=== PATIENT | female | born 1980 | race Caucasian/White ===

== ENCOUNTER 2017-12-31 12:54 | Outpatient (CLI) | payer MEDICAID, SELFPAY ==
[2018-01-01 11:41] LABS: Lyme Ab w Rflx to Lyme Confirm Negative; Rheumatoid Factor <8 IU/mL (<12.5)
[2018-01-01 13:28] LABS: ANA Interpretation Negative (NEGAT)
== END 2017-12-31 13:14 ==
PROVIDERS: Visit Provider Obstetrics & Gynecology Gynecology
DX: R68.89 Other general symptoms and signs (principal)
CPT/HCPCS: 36415; 86038; 86431; 86618

== ENCOUNTER 2018-04-11 14:07 | Emergency (ER) | payer MEDICAID, SELFPAY ==
[2018-04-11 14:20] VITALS: BP 118/89; PULSE 108; RESP 20; TEMP 37.6; O2SAT 97
--- NOTE | 2018-04-11 15:14 | W.ED.GENAD ---
Discharge Plan Disposition Patient Disposition: HOME Condition: Fair Discharge Details Chief Complaint: RespSymp Clinical Impression: Bronchitis Reason For Visit: cough / body aches Primary Care Provider: None,None ED Provider: Kayleigh Bejarano Home Meds and New Rx's Prescriptions: New benzonatate [Tessalon Perles] 100 mg capsule 100 mg PO QID PRN (Reason: cough) Qty: 14 RF: 0 azithromycin 500 mg tablet See Rx Instructions .ROUTE .COMPLEX Qty: 3 RF: 0 Continued Estephania-[place] Original 325-1,916-1,000 mg Tablet, Effervescent RF: 0 Discharge Instructions Instructions: Albuterol (By breathing), Acute Bronchitis (ED) Additional Instructions: Encourage hydration. Tylenol and/or ibuprofen as needed for discomfort or fevers. May continue with Estephania-[place] to help with symptomatic management. Inhaler may be used 2 puffs every 4 hours as needed. Please always use with spacer. Tessalon perles as prescribed for cough. If symptoms persist over the next 48 hours or worsen please begin antibiotics as prescribed. If you begin the antibiotics please take the entire course. shipping and receiving coordinator will contact you to schedule follow up with primary care. If you develop difficulty breathing, shortness of breath, inability to stay hydrated or other new/worsening symptoms please seek care urgently once again. Discharge Data Discharge Date/Time-TO BE ENTERED AT DEPARTURE: 04/11/18 16:04 Medical Decision Making Patient 37-year-old female presents today with chief complaint of URI. She reports that symptoms began 5 days ago. Is endorsing rhinorrhea, congestion, sore throat, cough. She denies any GI upset. States she feels short of breath when she has coughing fits but otherwise is not having any shortness of breath, no shortness of breath with exertion. Denies any fevers at home but was noted to have a low-grade fever here. On exam, patient appears nontoxic. She does have expiratory wheezes noted in all [place]. Lungs are otherwise clear. O2 97% on RA. She has no history of asthma or respiratory illness. Cough is nonproductive. Patient diagnosed with bronchitis. Encouraged hydration. Advised Tylenol and ibuprofen as needed for discomfort. Patient will be given a an albuterol inhaler with spacer. Will also prescribed Tessalon Perles. Advised watch and wait approach in regard to antibiotics, discussed that the bronchitis is likely viral. I will prescribe her azithromycin to begin if symptoms persist. Usage instruction was given to the patient. We discussed new/worsening symptoms when she should seek care urgently once again. She does not have a primary care, I have asked her field care advocate to help arrange follow-up in the next 1-2 weeks for reevaluation. All of her questions and concerns were addressed, she is in agreement wiht this plan. HPI General Mode of arrival: ambulatory. Date/Time Provider Initiated Documentation: 04/11/18 15:13. Limitations to Documentation: no limitations. Information obtained by: patient. History of Present Illness 37 year old F presents to the emergency department with the chief complaint of URI, described as moderate, Quality is described as aching (endorses body aches), Patient started experiencing this day(s) and it has been constant. Medication improves symptom(s), No exacerbating factors reported . Patient notes chest pain (endorses discomfort with cough), cough and shortness of breath (with cough); denies fever/chills, headaches, loss of appetite, nausea/vomiting, rash and weakness. Patient did receive the following treatments prior to arrival, other (Estephania-lurdes) Related Data Home Medications Medication Instructions Recorded Confirmed Estephania-Lurdes Original 04/11/18 azithromycin See Rx Instructions .ROUTE 04/11/18 .COMPLEX #3 tab benzonatate [Tessalon Perles] 100 mg PO QID PRN #14 cap 04/11/18 Previous Rx's Medication Instructions Recorded azithromycin See Rx Instructions .ROUTE 04/11/18 .COMPLEX #3 tab benzonatate [Tessalon Perles] 100 mg PO QID PRN #14 cap 04/11/18 Allergies Allergy/AdvReac Type Severity Reaction Status Date / Time No Known Drug Allergies Allergy Unverified 04/11/18 14:27 General Stated Complaint: RespSymp ERNST: 4 Review of Systems Constitutional Reports as per HPI, Denies chills, Denies fever(s), Denies headache(s) and Denies poor appetite Eyes Reports as per HPI, Denies eye discharge and Denies irritation ENT Denies change in voice, Denies ear discharge, Reports otalgia, Denies headache(s), Denies hoarseness, Reports nasal congestion, Reports nasal discharge, Reports sinus pain, Reports sinus pressure, Reports sore throat, Denies throat swelling and Denies tongue swelling Cardiovascular Reports as per HPI, Denies chest pain and Denies dyspnea Respiratory Denies system reviewed and no additional complaints, except as docu, Reports cough, Denies hemoptysis, Denies dyspnea, Denies stridor and Denies wheezing Gastrointestinal Reports as per HPI, Denies abdominal pain, Denies change in bowel habits, Denies nausea and Denies vomiting Integumentary/Breasts Reports as per HPI and Denies rash Neurologic Denies headache(s) Allergic/Immunologic Denies throat swelling, Denies tongue swelling and Denies wheezing [facility] Medical History History of spontaneous (Acute) Chlamydia trachomatis infection condyloma vulva Family History Other Diabetes Hyperlipidemia Social History household members: significant other and children number of children: 2 current occupational status: employed current occupation: [employer] Smoking/Tobacco Use Status: Current-Occasional Female Reproductive History Menstrual control method: none History History 6 Para 2 Hx # Term Pregnancies 2 Multiple births Hx # Pregnancies Ectopic pregnancies AB induced Hx Number of Living Children AB spontaneous Exam Const General: cooperative, healthy appearing, comfortable, no acute distress, well developed and well groomed Nutritional Appearance: average body habitus and well nourished Orientation: alert and awake [facility] Head: normal to inspection, normocephalic and atraumatic Ears: hearing grossly normal bilaterally, external ears normal and TM's normal bilaterally General nose exam: external nose normal and nares normal Face and sinus: normal facial exam, sinuses nontender and face symmetric Mouth: oral mucosae normal, lip normal, tongue normal, oropharynx normal and moist mucous membranes Teeth and gingiva: dentition normal Throat: posterior oropharynx normal, tonsils normal and uvula midline Eyes General: appearance normal, both eyes and all related structures Neck Neck: normal visual inspection, full ROM, no lymphadenopathy and no meningeal signs Resp Effort & Inspection: normal respiratory effort, able to speak in complete sentences, cough Quality of cough: dry and no respiratory distress Auscultation: no rales, no rhonchi and wheezes (faint expiratory wheeze in all [place]) Cardio Rate: regular rate Rhythm: regular rhythm Heart Sounds: S1 normal and S2 normal Skin General skin exam: no rashes or lesions noted Neuro General: alert and awake Cognition: normal cognition Speech: speech normal Gait: normal gait Psych Appearance: grossly normal and well kempt Mental Status: mental status grossly normal Speech and Movement: speech and movement normal Course Vital Signs Temperature 37.6 C H 04/11/18 14:20 Pulse 108 H 04/11/18 14:20 Respiratory Rate 20 04/11/18 14:20 Blood Pressure 118/89 04/11/18 14:20 Pulse Oximetry 97 04/11/18 14:20 Temperature 37.6 C H 04/11/18 14:20 Temperature Source Tympanic 04/11/18 14:20 Pulse 108 H 04/11/18 14:20 Respiratory Rate 20 04/11/18 14:20 Respiratory Effort 04/11/18 14:28 Respiratory Depth Normal 04/11/18 14:28 Blood Pressure 118/89 04/11/18 14:20 Blood Pressure Position Sitting 04/11/18 14:20 Pulse Oximetry 97 04/11/18 14:20 Oxygen Delivery Method Room Air 04/11/18 14:20 Oxygen Flow Rate 0 04/11/18 14:20
--- NOTE | 2018-04-11 15:23 | ED.GENADUL_ITS ---
Discharge Plan Disposition Patient Disposition: HOME Condition: Fair Discharge Details Chief Complaint: RespSymp Clinical Impression: Bronchitis Reason For Visit: cough / body aches Primary Care Provider: None,None ED Provider: Kayleigh Bejarano Home Meds and New Rx's Prescriptions: New benzonatate [Tessalon Perles] 100 mg capsule 100 mg PO QID PRN (Reason: cough) Qty: 14 RF: 0 azithromycin 500 mg tablet See Rx Instructions .ROUTE .COMPLEX Qty: 3 RF: 0 Continued Estephania-[place] Original 325-1,916-1,000 mg Tablet, Effervescent RF: 0 Discharge Instructions Instructions: Albuterol (By breathing), Acute Bronchitis (ED) Additional Instructions: Encourage hydration. Tylenol and/or ibuprofen as needed for discomfort or fevers. May continue with Estephania-[place] to help with symptomatic management. Inhaler may be used 2 puffs every 4 hours as needed. Please always use with s pacer. Tessalon perles as prescribed for cough. If symptoms persist over the next 48 hours or worsen please begin antibiotics as prescribed. If you begin the antibiotics please take the entire course. major donor coordinator will contact you to schedule follow up with primary care. If you develop difficulty breathing, shortness of breath, inability to stay hydrated or other new/worsening symptoms please seek care urgently once again. Discharge Data Discharge Date/Time-TO BE ENTERED AT DEPARTURE: 04/11/18 16:04 Medical Decision Making Patient 37-year-old female presents today with chief complaint of URI. She reports that symptoms began 5 days ago. Is endorsing rhinorrhea, congestion, sore throat, cough. She denies any GI upset. States she feels short of breath when she has coughing fits but otherwise is not having any shortness of breath, no shortness of breath with exertion. Denies any fevers at home but was noted to have a low-grade fever here. On exam, patient appears nontoxic. She does have expiratory wheezes noted in all [place]. Lungs are otherwise clear. O2 97% on RA. She has no history of asthma or respiratory illness. Cough is nonproductive. Patient diagnosed with bronchitis. Encouraged hydration. Advised Tylenol and ibuprofen as needed for discomfort. Patient will be given a an albuterol inhaler with spacer. Will also prescribed Tessalon Perles. Advised watch and wait approach in regard to antibiotics, discussed that the bronchitis is likely viral. I will prescribe her azithromycin to begin if symptoms persist. Usage instruction was given to the patient. We discussed new/worsening symptoms when she should seek care urgently once again. She does not have a primary care, I have asked her ambulatory care nurse to help arrange follow-up in the next 1-2 weeks for reevaluation. All of her questions and concerns were addressed, she is in agreement wiht this plan. HPI General Mode of arrival: ambulatory . Date/Time Provider Initiated Documentation: 04/11/18 15:13 . Limitations to Documentation: no limitations . Information obtained by: patient . History of Present Illness 37 year old F presents to the emergency department with the chief complaint of URI, described as moderate, Quality is described as aching (endorses body aches), Patient started experiencing this day(s) and it has been constant. Medication improves symptom(s), No exacerbating factors reported . Patient notes chest pain (endorses discomfort with cough), cough and shortness of breath (with cough); denies fever/chills, headaches, loss of appetite, nausea/vomiting, rash and weakness. Patient did receive the following treatments prior to arrival, other (Estephania-lurdes) Related Data Home Medications Medication Instructions Recorded Confirmed Estephania-Lurdes Original 04/11/18 azithromycin See Rx Instructions .ROUTE 04/11/18 .COMPLEX #3 tab benzonatate [Tessalon Perles] 100 mg PO QID PRN #14 cap 04/11/18 Previous Rx's Medication Instructions Recorded azithromycin See Rx Instructions .ROUTE 04/11/18 .COMPLEX #3 tab benzonatate [Tessalon Perles] 100 mg PO QID PRN #14 cap 04/11/18 Allergies Allergy/AdvReac Type Severity Reaction Status Date / Time No Known Drug Allergies Allergy Unverified 04/11/18 14:27 General Stated Complaint: RespSymp ERNST: 4 Review of Systems Constitutional Reports as per HPI, Denies chills, Denies fever(s), Denies headache(s) and Denies poor appetite Eyes Reports as per HPI, Denies eye discharge and Denies irritation ENT Denies change in voice, Denies ear discharge, Reports otalgia, Denies headache(s), Denies hoarseness, Reports nasal congestion, Reports nasal discharge, Reports sinus pain, Reports sinus pressure, Reports sore throat, Denies throat swelling and Denies tongue swelling Cardiovascular Reports as per HPI, Denies chest pain and Denies dyspnea Respiratory Denies system reviewed and no additional complaints, except as docu, Reports cough, Denies hemoptysis, Denies dyspnea, Denies stridor and Denies wheezing Gastrointestinal Reports as per HPI, Denies abdominal pain, Denies change in bowel habits, Denies nausea and Denies vomiting Integumentary/Breasts Reports as per HPI and Denies rash Neurologic Denies headache(s) Allergic/Immunologic Denies throat swelling, Denies tongue swelling and Denies wheezing [facility] Medical History History of spontaneous (Acute) Chlamydia trachomatis infection condyloma vulva Family History Other Diabetes Hyperlipidemia Social History household members: significant other and children number of children: 2 current occupational status: employed current occupation: [employer] Smoking/Tobacco Use Status: Current-Occasional Female Reproductive History Menstrual control method: none History History 6 Para 2 Hx # Term Pregnancies 2 Multiple births Hx # Pregnancies Ectopic pregnancies AB induced Hx Number of Living Children AB spontaneous Exam Const General: cooperative, healthy appearing, comfortable, no acute distress, well developed and well groomed Nutritional Appearance: average body habitus and well nourished Orientation: alert and awake [facility] Head: normal to inspection, normocephalic and atraumatic Ears: hearing grossly normal bilaterally, external ears normal and TM's normal bilaterally General nose exam: external nose normal and nares normal Face and sinus: normal facial exam, sinuses nontender and face symmetric Mouth: oral mucosae normal, lip normal, tongue normal, oropharynx normal and moist mucous membranes Teeth and gingiva: dentition normal Throat: posterior oropharynx normal, tonsils normal and uvula midline Eyes General: appearance normal, both eyes and all related structures Neck Neck: normal visual inspection, full ROM, no lymphadenopathy and no meningeal signs Resp Effort & Inspection: normal respiratory effort, able to speak in complete sentences, cough Quality of cough: dry and no respiratory distress Auscultation: no rales, no rhonchi and wheezes (faint expiratory wheeze in all [place]) Cardio Rate: regular rate Rhythm: regular rhythm Heart Sounds: S1 normal and S2 normal Skin General skin exam: no rashes or lesions noted Neuro General: alert and awake Cognition: normal cognition Speech: speech normal Gait: normal gait Psych Appearance: grossly normal and well kempt Mental Status: mental status grossly normal Speech and Movement: speech and movement normal Course Vital Signs Temperature 37.6 C H 04/11/18 14:20 Pulse 108 H 04/11/18 14:20 Respiratory Rate 20 04/11/18 14:20 Blood Pressure 118/89 04/11/18 14:20 Pulse Oximetry 97 04/11/18 14:20 Temperature 37.6 C H 04/11/18 14:20 Temperature Source Tympanic 04/11/18 14:20 Pulse 108 H 04/11/18 14:20 Respiratory Rate 20 04/11/18 14:20 Respiratory Effort 04/11/18 14:28 Respiratory Depth Normal 04/11/18 14:28 Blood Pressure 118/89 04/11/18 14:20 Blood Pressure Position Sitting 04/11/18 14:20 Pulse Oximetry 97 04/11/18 14:20 Oxygen Delivery Method Room Air 04/11/18 14:20 Oxygen Flow Rate 0 04/11/18 14:20
[2018-04-11] MEDS: Albuterol HFA 8 GM 60 PUFF INH IH (16:04)
--- NOTE | 2018-04-13 12:14 | PDOC.ERCMPRO ---
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 Referral faxed to [facility] this am.
--- NOTE | 2018-04-13 12:16 | CMPROGNOTE_ITS ---
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 Referral faxed to [facility] this am.
== END 2018-04-11 16:04 | disposition home or self-care (01) ==
PROVIDERS: Emergency Provider Physician Assistant
DX: J20.9 Acute bronchitis, unspecified (principal)
CPT/HCPCS: 99283

== ENCOUNTER 2018-06-19 09:20 | Outpatient (REF) | payer MEDICAID, SELFPAY ==
[2018-06-19 12:34] LABS: Potassium 4.1 mmol/L (3.5-5.1)
[2018-06-19 12:45] LABS: ALT 35 U/L (12-78); AST 29 U/L (15-37); Albumin 4.5 g/dL (3.4-5.0); Alkaline Phosphatase 58 U/L (46-116); Anion Gap 13.2 mmol/L (3-11); BUN 16 mg/dL (7-18); CO2 25.8 mmol/L (21.0-32.0); CREATININE 0.78 mg/dL (0.55-1.02); Calcium 9.1 mg/dL (8.5-10.1); Chloride 100 mmol/L (98-107); Glucose 87 mg/dL (70-100); Sodium 139 mmol/L (136-145); Total Protein 7.6 g/dL (6.4-8.2)
== END 2018-06-19 09:40 ==
LOC: NCHCN 09:20
PROVIDERS: PCP Nurse Practitioner Family; Visit Provider Nurse Practitioner Family
DX: F90.0 Attention-deficit hyperactivity disorder, predominantly inattentive type (principal)
CPT/HCPCS: 80053

== ENCOUNTER 2019-03-01 15:26 | Emergency (ER) | payer MEDICAID, SELFPAY ==
[2019-03-01 15:33] VITALS: BP 150/95; PULSE 91; RESP 18; TEMP 36.5; O2SAT 100
--- NOTE | 2019-03-01 15:53 | ED.GENADUL_ITS ---
Discharge Plan Disposition Patient Disposition: HOME Condition: Fair Discharge Details Chief Complaint: GenMedical Clinical Impression: Lymphadenopathy Primary Care Provider: Mendoza Newton ED Provider: Kayleigh Bejarano Home Meds and New Rx's Prescriptions: New azithromycin 250 mg tablet See Rx Instructions .ROUTE .COMPLEX Qty: 6 RF: 0 Continued azelaic acid [Finacea] 15 % gel 1 applic TP BID RF: 0 Discharge Instructions Instructions: Lymphadenopathy (ED), Cat Scratch Disease (ED) Additional Instructions: Encourage hydration. You may use Tylenol and/or ibuprofen as needed for discomfort. Please take the azithromycin as prescribed. The testing for the causative agent for cat scratch fever is pending, we will call you with any positive results. Please follow-up with your primary care provider in 1 week for reevaluation. If you develop difficulty breathing, shortness of breath, pain with swallowing or other new/worsening symptoms please seek care urgently once again. Referrals: Mendoza Newton, CLINICAL ASSISTANT PROFESSOR [Primary Care Provider] - Discharge Data Discharge Date/Time-TO BE ENTERED AT DEPARTURE: 03/01/19 17:40 Medical Decision Making Patient is a 38-year-old female presenting today with chief complaint of swelling under her chin that is progressive and increasing over the past 5 days. She is concerned this may be cat scratch fever. She does not believe the cat has scratched or bitten her in this area but states that it is possible. Is not noted any obvious wounds. Denies any fevers or chills. No recent travel. No difficulty swallowing, no change in appetite. No pain with chewing, no dental pain. On exam, patient has notable submandibular swelling to focal area. A firm, nonmobile round 2 cm nodules palpable. This is fairly midline. She does have palpable lymphadenopathy on the right side. Otherwise, no acute abnorm ality. She does have small areas of trauma on the dorsal aspect of her hands, more so the left than the right consistent with her history of being scratched by her cat at varying intervals. Plan for imaging for further evaluation. Will obtain a qualitative hCG, send out Bartonella testing. If this is negative, her history is highly suggestive of cat scratch fever and plan to treat with azithro mycin per up-to-date recommendations. No evidence of eye involvement, no change in vision, no abdominal pain or organ enlargement. Labs reviewed. No leukocytosis. Negative hCG. CRP is barely elevated at 0.31. Bartonella testing still pending. Normal liver enzymes. FINDINGS: Nasopharynx: Unremarkable. Oropharynx: Unremarkable. No significant tonsillar enlargement. Hypopharynx: Unremarkable Larynx: Unremarkable. Normal epiglottis. Retropharyngeal space: Unremarkable. Submandibular/Parotid glands: Normal. Glands are normal in size. Thyroid: Normal. No enlarged or calcified nodules. Lymph nodes: See Soft Tissues Finding. Trachea: Visualized trachea is unremarkable. Lungs: Unremarkable as visualized. Bones/joints: Unremarkable. No acute fracture. Soft tissues: 1.4 cm rounded lesion in the submental region. There is a 1.6 x 1.1 cm lymph node in the right submental region. 1.4 cm lymph node in right level IIB region. IMPRESSION: Lesion measuring 1.4 cm in the submental region likely representing a lymph node. There are prominent lymph nodes in the right neck. Discussed these findings with the patient. She reports she initially did have an erythematous area which may have been site of inoculation over the area of swelling and discomfort, I am concerned for cat scratch fever and will treat for typical Bartonella infection with azithromycin. At the patient's request, prescription was called into her local pharmacy. She is given strict return precautions. I did asked that she follow-up with primary care. All of her questions and concerns were addressed she is in agreement this plan. HPI General Mode of arrival: ambulatory . Date/Time Provider Initiated Documentation: 03/01/19 15:52 . Limitations to Documentation: no limitations . Information obtained by: patient and RN notes reviewed . HPI Narrative: Patient is a 38-year-old female presenting today with chief complaint of enlarged nodule under her chin and associated right-sided neck pain. Patient reports that she first had some discomfort in this area 5 days ago. She reports that since that time, the discomfort has increased and she has noted swelling. Is not noted any intraoral swelling. No dental pain. No fevers or chills. Denies any known trauma. Denies any pain when she chews. No difficulty or discomfort with swallowing. No recent travel. No recent antibiotics. Unknown status. Patient is not had swelling like this historically. She is concerned that she has cats and she has been scratched multiple times, believes her kitten may have fleas and is concerned for possible cat scratch fever. Related Data Home Medications Medication Instructions Recorded Confirmed azelaic acid 15 % topical gel 1 applic TP BID 12/22/18 03/01/19 azithromycin See Rx Instructions .ROUTE 03/01/19 .COMPLEX #6 tab Previous Rx's Medication Instructions Recorded azithromycin See Rx Instructions .ROUTE 03/01/19 .COMPLEX #6 tab Allergies Allergy/AdvReac Type Severity Reaction Status Date / Time No Known Drug Allergies Allergy Unverified 03/01/19 15:39 General Stated Complaint: GenMedical ERNST: 3 Review of Systems Constitutional Constitutional: Reports as per HPI, Denies chills, Denies fatigue, Denies fever(s), Denies headache(s), Denies poor appetite and Denies weakness Eyes Eyes: Reports as per HPI, Denies eye discharge and Denies irritation ENT Ears, Nose, Mouth, and Throat: Reports as per HPI and Denies headache(s) Cardiovascular Cardiovascular: Reports as per HPI, Denies chest pain and Denies dyspnea Respiratory Respiratory: Reports as per HPI, Denies cough, Denies hemoptysis and Denies dyspnea Gastrointestinal Gastrointestinal: Reports as per HPI, Denies abdominal pain, Denies change in bowel habits, Denies nausea and Denies vomiting Integumentary/Breasts Skin/Breast: Reports as per HPI and Denies rash Neurologic Neurologic: Reports as per HPI, Denies headache(s) and Denies weakness Endocrine Endocrine: Denies fatigue PFSH Family History (Updated 12/22/18 @ 10:27 by Brooklyn Beltran RN) Other Colon cancer Diabetes Hyperlipidemia Social History (Updated 01/27/18 @ 19:33 by Dhara Tamayo MD) Smoking/Tobacco Use Status: Current-Occasional Alcohol Intake: current Alcohol Intake frequency: a few times a week Drug use: Occasionally Substance use type: marijuana Household members: significant other and children Number of Children: 2 current occupation: [employer] Do you feel safe at home: Yes Do you feel safe in your relationship?: Yes Female Reproductive History Menstrual control method: none History History 6 Para 2 Hx # Term Pregnancies 2 Multiple births Hx # Pregnancies Ectopic pregnancies AB induced Hx Number of Living Children AB spontaneous Exam Const General: cooperative, healthy appearing, comfortable, no acute distress, well developed and well groomed Nutritional Appearance: average body habitus and well nourished Orientation: alert and awake HENMT Head: normal to inspection, normocephalic and atraumatic Ears: hearing grossly normal bilaterally, external ears normal and TM's normal bilaterally General nose exam: external nose normal and nares normal Face and sinus: normal facial exam, sinuses nontender and face symmetric Face images: 1. Area of swelling. Firm, circular, mobile nodule approximately 2 cm in diameter. No intraoral swelling is noted, no swelling under the tongue, no mari mus. Mouth: oral mucosae normal, lip normal, tongue normal, oropharynx normal, moist mucous membranes, no audible dysphonia, no drooling, normal lip, breath no malodorous, No mouth trauma, no muffled voice, normal oral mucosae, No abnormal TMJ, no trismus and No restricted motion Teeth and gingiva: dentition normal and gingiva normal Throat: posterior oropharynx normal, tonsils normal and uvula midline Eyes General: appearance normal, both eyes and all related structures Neck Neck: full ROM, no meningeal signs, trachea midline, supple, no anterior neck swelling, lymphadenopathy (Right side superficial cervical lymph nodes palpable), nontender and submandibular swelling (as drawn and described above) Thyroid: thyroid normal Resp Effort & Inspection: normal respiratory effort, able to speak in complete sentences and no respiratory distress Auscultation: clear to auscultation bilaterally, no rales, no rhonchi and no wheezes Cardio Rate: regular rate Rhythm: regular rhythm Heart Sounds: S1 normal and S2 normal Skin General skin exam: no rashes or lesions noted Neuro General: alert and awake Cognition: normal cognition Speech: speech normal Gait: normal gait Psych Appearance: grossly normal and well kempt Mental Status: mental status grossly normal Speech and Movement: speech and movement normal Course Vital Signs Vital signs: Vital Signs Temperature 36.5 C 03/01/19 15:33 Pulse 91 H 03/01/19 15:33 Respiratory Rate 18 03/01/19 15:33 Blood Pressure 150/95 H 03/01/19 15:33 Pulse Oximetry 100 03/01/19 15:33 Temperature 36.5 C 03/01/19 15:33 Temperature Source Skin 03/01/19 15:33 Pulse 91 H 03/01/19 15:33 Respiratory Rate 18 03/01/19 15:33 Respiratory Effort Non-Labored 03/01/19 15:39 Blood Pressure 150/95 H 12/16/19 15:33 Blood Pressure Position Sitting 03/01/19 15:33 Pulse Oximetry 100 03/01/19 15:33 Oxygen Delivery Method Room Air 03/01/19 15:33 Oxygen Flow Rate 0 03/01/19 15:33 Pain Level 3 03/01/19 15:33 Comment 03/01/19 15:33
[2019-03-01] MEDS: Normal Saline 1,000 ML 1000 ML IV (16:25)
[2019-03-01] MEDS: Omnipaque 350 MG/ML 100 ML BTL IJ (16:45)
--- NOTE | 2019-03-01 16:46 | DI.CT_ITS ---
EXAM: CT NECK W CLINICAL HISTORY: mass under chin TECHNIQUE: 100 cc's Omnipaque 350 IV. COMPARISON: No exams were available for comparison FINDINGS: There is an enlarged lymph node seen centrally in the submental region measuring 1.4 cm. There is a right submental lymph node measuring 1.6 cm. An additional lymph node is seen on the right posterio r to the mandible measuring 1.4 cm. Other smaller nodes are seen in the posterior cervical chain, ri ght greater than left. The parotid, submandibular and thyroid glands are unremarkable. The vascular structures appear intact. The orbits, sinuses and mastoid air cells are unremarkable. No abnormali ty is seen in the visualized portion of the lungs. IMPRESSION: Multiple mildly enlarged cervical lymph nodes, presumably reactive.
[2019-03-01 16:49] LABS: ALT 27 U/L (14-59); AST 24 U/L (15-37); Albumin 4.2 g/dL (3.4-5.0); Alkaline Phosphatase 70 U/L (46-116); BUN 15 mg/dL (7-18); Bilirubin, Total 0.3 mg/dL (0.2-1.0); C-Reactive Protein 0.31 mg/dL (0.0-0.3); CREATININE 0.79 mg/dL (0.55-1.02); Chloride 101 mmol/L (98-107); Glucose 85 mg/dL (74-106); Potassium 3.9 mmol/L (3.5-5.1); Sodium 138 mmol/L (136-145)
[2019-03-01 16:54] LABS: HCG Qual (Serum) Negative
--- NOTE | 2019-03-01 17:12 | DI.VRAD_ITS ---
PROCEDURE INFORMATION: Exam: CT Neck With Contrast Exam date and time: 03/01/2019 4:43 PM Age: 38 years old Clinical history: Mass, lump, or swelling in neck; Patient HX: Mass under chin TECHNIQUE: Imaging protocol: Computed tomography images of the neck with intravenous contrast. COMPARISON: No relevant prior studies available. FINDINGS: Nasopharynx: Unremarkable. Oropharynx: Unremarkable. No significant tonsillar enlargement. Hypopharynx: Unremarkable Larynx: Unremarkable. Normal epiglottis. Retropharyngeal space: Unremarkable. Submandibular/Parotid glands: Normal. Glands are normal in size. Thyroid: Normal. No enlarged or calcified nodules. Lymph nodes: See Soft Tissues Finding. Trachea: Visualized trachea is unremarkable. Lungs: Unremarkable as visualized. Bones/joints: Unremarkable. No acute fracture. Soft tissues: 1.4 cm rounded lesion in the submental region. There is a 1.6 x 1.1 cm lymph node in the right submental region. 1.4 cm lymph node in right level IIB region. IMPRESSION: Lesion measuring 1.4 cm in the submental region likely representing a lymph node. There are prominent lymph nodes in the right neck. Dictated and Authenticated by: Neel Lopez MD. Ordering:DEEPAK Victor MD
[2019-03-01 17:14] LABS: Absolute Basophil Count 0.08 k/cumm (0.0-0.2); Absolute Eosinophil Count 0.13 k/cumm (0.0-0.7); Absolute Lymphocyte Count 1.33 k/cumm (1.2-3.4); Absolute Monocyte Count 0.65 k/cumm (0.11-0.7); Absolute Neutrophil Count 3.69 k/cumm (1.2-6.7); Basophils % 1.4; Eosinophils % 2.2; HCT 42.7 % (36.0-46.0); HGB 14.5 g/dL (12.0-15.5); Lymphocytes % 22.6; Mean Corpuscular Hemoglobin 33.6 pg (27.0-33.0); Mean Corpuscular Volume 98.8 fL (80-95); Mean Platelet Volume 8.7 fL (8.0-11.0); Monocytes % 11.1; Neutrophils % 62.7; Platelet Count 361 x1000/uL (130-400); RBC 4.32 m/cumm (4.00-5.20); RBC Distribution Width 12.6 % (11.7-14.6); White Blood Cell Count 5.88 k/cumm (4.4-10.8)
[2019-03-01 17:16] VITALS: BP 143/97; PULSE 74; RESP 18; O2SAT 100
[2019-03-01 17:40] VITALS: BP 143/97; PULSE 74; RESP 18; O2SAT 100
[2019-03-01 18:03] LABS: ESR 16 mm/hr (0-20)
[2019-03-03 21:02] LABS: Bartonella Henselae IgG <1:128 titer (<1:128); Bartonella Henselae IgM <1:20 titer (<1:20); Bartonella Quintana IgG <1:128 titer (<1:128); Bartonella Quintana IgM <1:20 titer (<1:20)
[2019-03-05 14:18] LABS: Bartonella PCR Negative; Specimen Source BLOOD
== END 2019-03-01 17:40 | disposition home or self-care (01) ==
PROVIDERS: Emergency Provider Physician Assistant; PCP Nurse Practitioner Family
DX: R59.0 Localized enlarged lymph nodes (principal)
CPT/HCPCS: 70491; 80053; 85652; 87801; 96360; 99285; 84703; 85025; 86140; 86611; 87798; 99284; J3490

== ENCOUNTER 2019-06-30 12:42 | Outpatient (REF) | payer MEDICAID, SELFPAY ==
[2019-06-30 14:44] LABS: *AMPHETAMINES SCREEN URINE Negative (Negative); *BARBITURATES SCREEN URINE Negative (Negative); *BENZODIAZEPINES SCREEN URINE Negative (Negative); Cannabinoids THC POSITIVE (Negative); Cocaine Screen,Urine Negative (Negative); METHADONE URINE SCREEN Negative (Negative); OPIATES URINE SCREEN Negative (Negative)
[2019-06-30 14:56] LABS: Tricyclic Antidepressants Negative (Negative)
[2019-07-03 23:17] LABS: Buprenorphine Negative; Norbuprenorphine Negative
== END 2019-06-30 13:02 ==
LOC: LBN 12:42
PROVIDERS: PCP Nurse Practitioner Family; Visit Provider Advanced Practice Midwife
DX: Z34.91 Encounter for supervision of normal pregnancy, unspecified, first trimester (principal)
CPT/HCPCS: 80307; 87086

== ENCOUNTER 2019-07-28 13:42 | Outpatient (REF) | payer MEDICAID, SELFPAY ==
--- NOTE | 2019-07-28 14:20 | PAPFT_PTH ---
PATIENT: Farhad Sen LOC: [facility] U#:[id number] AGE/SX: 39/F ROOM: RE07/28/[address]: Adrienne Govea : 1980 BED: DIS: 07/28/2019 SPEC #: [id number] RECD: 07/28/19 15:36 STATUS: JIM REQ #: [id number] OLI: 07/28/19 14:[address]: Adrienne Govea DEPT: [facility] Cytology RECD BY: Jessica Olson ENTERED: 07/28/19 15:37 SP TYPE: PAPFT OTHR DR: Mendoza Newton Tissues: 1 - CX/ENDOCX FOR PAP SMEARS Procedures: PAP THIN PREP/UVM Screening HPV DNA PROBE Comments: [id number]
[2019-07-28 14:31] LABS: *AMPHETAMINES SCREEN URINE Negative (Negative); *BARBITURATES SCREEN URINE Negative (Negative); *BENZODIAZEPINES SCREEN URINE Negative (Negative); Cannabinoids THC POSITIVE (Negative); Cocaine Screen,Urine Negative (Negative); METHADONE URINE SCREEN Negative (Negative); OPIATES URINE SCREEN Negative (Negative)
[2019-07-28 14:33] LABS: Tricyclic Antidepressants Negative (Negative)
[2019-07-28 15:10] LABS: Abs Immature Grans 0.02 k/cumm (0.0-0.09); Absolute Basophil Count 0.04 k/cumm (0.0-0.2); Absolute Eosinophil Count 0.07 k/cumm (0.0-0.7); Absolute Lymphocyte Count 1.32 k/cumm (1.2-3.4); Absolute Monocyte Count 0.61 k/cumm (0.11-0.7); Absolute Neutrophil Count 7.78 k/cumm (1.2-6.7); Basophils % 0.4; Eosinophils % 0.7; HCT 40.2 % (36.0-46.0); HGB 13.8 g/dL (12.0-15.5); Immature Grans % 0.2 %; Lymphocytes % 13.4; Mean Corp. HGB Concentration 34.3 g/dL (32.0-36.0); Mean Corpuscular Hemoglobin 33.2 pg (27.0-33.0); Mean Corpuscular Volume 96.6 fL (80-95); Mean Platelet Volume 9.3 fL (8.0-11.0); Monocytes % 6.2; Neutrophils % 79.1; Platelet Count 349 x1000/uL (130-400); RBC 4.16 m/cumm (4.00-5.20); RBC Distribution Width 12.2 % (11.7-14.6); White Blood Cell Count 9.84 k/cumm (4.4-10.8)
[2019-07-28 15:37] LABS: TSH (W/Ref FT4) 0.68 uIU/mL (0.36-3.74)
[2019-07-29 09:54] LABS: Hepatitis B Surface Ag Negative (Negative)
[2019-07-29 10:01] LABS: HIV-1/2 Ag & Ab Screen Negative (Negative)
[2019-07-29 10:11] LABS: Hepatitis C Ab w Rflx HCV PCR Negative (Negative)
[2019-07-29 10:17] LABS: Rubella IgG Ab (UVM) Positive (See Note); Varicella IgG Antibody Positive (See Note)
[2019-07-29 15:08] LABS: Chlamydia Result Negative (Negative); GC Result Negative (Negative)
[2019-07-30 10:14] LABS: Syphilis Total Ab w/Reflex Nonreactive (Nonreactive)
[2019-08-04 17:54] LABS: Buprenorphine Negative; Norbuprenorphine Negative
== END 2019-07-28 14:02 ==
LOC: LBN 13:42
PROVIDERS: Advanced Practice Midwife; PCP Nurse Practitioner Family; Visit Provider Advanced Practice Midwife
DX: Z34.91 Encounter for supervision of normal pregnancy, unspecified, first trimester (principal); Z11.4 Encounter for screening for human immunodeficiency virus [HIV]; Z11.59 Encounter for screening for other viral diseases; Z11.3 Encounter for screening for infections with a predominantly sexual mode of transmission; Z12.4 Encounter for screening for malignant neoplasm of cervix; Z36.89 Encounter for other specified antenatal screening
CPT/HCPCS: 80307; 86787; 86803; 86850; 86900; 86901; 87340; 87389; 87491; 87591; 88142; 84443; 85025; 86762; 86780; 87086; 87624

== ENCOUNTER 2019-11-17 05:09 | Outpatient (CLI) | payer MEDICAID, SELFPAY ==
[2019-11-17 10:12] LABS: HCT 33.4 % (36.0-46.0); HGB 11.1 g/dL (11.2-15.7); MCHC 33.2 % (32.0-36.0); MCV 96.3 fL (80-95); MPV 9.2 fL (8.0-11.0); Platelet Count 337 10^3/uL (130-400); RBC 3.47 10^6/uL (3.93-5.22); RDW 12.3 % (11.7-14.6); RDW-SD 43.6 fL; WBC 10.08 10^3/uL (4.4-10.8)
[2019-11-17 10:18] LABS: Glucose,1 Hr (Glucola) 59 mg/dL (80-140)
== END 2019-11-17 05:29 ==
PROVIDERS: PCP Nurse Practitioner Family; Visit Provider Advanced Practice Midwife
DX: Z3A.28 28 weeks gestation of pregnancy (principal)
CPT/HCPCS: 36415; 82950; 85027

== ENCOUNTER 2020-01-12 11:54 | Outpatient (REF) | payer MEDICAID, SELFPAY ==
[2020-01-12 13:04] LABS: *AMPHETAMINES SCREEN URINE Negative (Negative); *BARBITURATES SCREEN URINE Negative (Negative); *BENZODIAZEPINES SCREEN URINE Negative (Negative); Cannabinoids THC POSITIVE (Negative); Cocaine Screen,Urine Negative (Negative); METHADONE URINE SCREEN Negative (Negative); OPIATES URINE SCREEN Negative (Negative)
[2020-01-12 13:05] LABS: Tricyclic Antidepressants Negative (Negative)
[2020-01-18 08:27] LABS: Buprenorphine Negative; Norbuprenorphine Negative
== END 2020-01-12 12:14 ==
LOC: LBN 11:54
PROVIDERS: PCP Nurse Practitioner Family; Visit Provider Advanced Practice Midwife
DX: Z34.93 Encounter for supervision of normal pregnancy, unspecified, third trimester (principal)
CPT/HCPCS: 80307; 87081

== ENCOUNTER 2020-01-17 07:11 | Outpatient (CLI) | payer MEDICAID, SELFPAY ==
[2020-01-17 09:34] VITALS: BP 129/81; PULSE 85; RESP 16
[2020-01-17 09:47] VITALS: BP 129/81; PULSE 85; TEMP 37.1
--- NOTE | 2020-01-17 10:13 | W.OBNST ---
Date of service: 01/17/20 Time of Service: 10:13 NST Evaluation Reason for NST Reasons for Nonstress Test: ADVANCED MATERNAL AGE Gestational Age Gestational Age in Weeks and Days: 37 Weeks and 0Days Test and Monitor Explained Test/Monitor Explained: Test Explained, Monitor Explained and Patient Verbalized Understanding Vital Signs Blood Pressure: 129/81 Pulse: 85 Temperature: 98.8 F Urine Results Urine Protein: Negative Urine Ketones: Negative Urine Glucose: Negative Urine Blood: Negative NST Information Date on Monitor: 01/17/20 Time on Monitor: 09:08 NST Interventions: PO Hydration NST Evaluation Patient States Movement: Present Variability: Moderate 6-25 bpm Accelerations: 15x15 Decelerations: None NST Results: Reactive Note NST Note Note: Pt to return this for repeat NST, for AMA NST Reviewed and Verified by: Clarissa Zhang
[2020-01-17 10:14] VITALS: BP 129/81; PULSE 85; TEMP 37.1
== END 2020-01-17 09:54 | disposition home or self-care (01) ==
LOC: BCD 07:14 → OBS 08:38
PROVIDERS: PCP Nurse Practitioner Family; Visit Provider Advanced Practice Midwife
DX: O09.523 Supervision of elderly multigravida, third trimester (principal); Z3A.37 37 weeks gestation of pregnancy
CPT/HCPCS: 59025

== ENCOUNTER 2020-01-20 07:48 | Outpatient (CLI) | payer MEDICAID, SELFPAY ==
[2020-01-20 09:15] VITALS: BP 133/83; PULSE 75; TEMP 36.9
[2020-01-20 09:27] VITALS: BP 133/83; PULSE 75
[2020-01-20 09:41] VITALS: BP 117/78; PULSE 70
--- NOTE | 2020-01-20 10:18 | W.OBNST ---
Date of service: 01/20/20 Time of Service: 10:18 NST Evaluation Reason for NST Reasons for Nonstress Test: ADVANCED MATERNAL AGE Gestational Age Gestational Age in Weeks and Days: 37 Weeks and 3Days Test and Monitor Explained Test/Monitor Explained: Test Explained, Monitor Explained and Patient Verbalized Understanding Vital Signs Blood Pressure: 133/83 Pulse: 75 Temperature: 98.4 F Urine Results Urine Protein: Negative Urine Ketones: Negative Urine Glucose: Negative Urine Blood: Negative NST Information Date on Monitor: 01/20/20 Time on Monitor: 09:13 NST Interventions: PO Hydration NST Evaluation Patient States Movement: Present FHR Baseline: 135 Variability: Moderate 6-25 bpm Accelerations: 15x15 Decelerations: None NST Results: Reactive Note NST Note Note: NST for AMA. eactive NST. Induction planned at 39 weeks. NST Reviewed and Verified by: Adrienne Govea
[2020-01-20 10:19] VITALS: BP 133/83; PULSE 75; TEMP 36.9
[2020-01-20 11:12] VITALS: BP 119/66; PULSE 90
== END 2020-01-20 09:47 | disposition home or self-care (01) ==
LOC: BCD 07:49 → OBS 08:50
PROVIDERS: PCP Nurse Practitioner Family; Visit Provider Advanced Practice Midwife
DX: O09.523 Supervision of elderly multigravida, third trimester (principal); Z3A.37 37 weeks gestation of pregnancy
CPT/HCPCS: 59025

== ENCOUNTER 2020-01-24 07:22 | Outpatient (CLI) | payer MEDICAID, SELFPAY ==
[2020-01-24 09:00] VITALS: BP 127/75; PULSE 74; TEMP 36.9
[2020-01-24 09:40] VITALS: BP 127/75; PULSE 74
--- NOTE | 2020-01-24 10:12 | W.OBNST ---
Date of service: 01/24/20 Time of Service: 10:12 NST Evaluation Reason for NST Reasons for Nonstress Test: ADVANCED MATERNAL AGE Gestational Age Gestational Age in Weeks and Days: 38 Weeks and 0Days Test and Monitor Explained Test/Monitor Explained: Test Explained, Monitor Explained and Patient Verbalized Understanding Vital Signs Blood Pressure: 127/75 Pulse: 74 Temperature: 98.4 F NST Information Date on Monitor: 01/24/20 Time on Monitor: 09:10 Date off Monitor: 01/24/20 Time off Monitor: 10:00 Total Time on Monitor: 50 NST Interventions: PO Hydration NST Evaluation Patient States Movement: Present FHR Baseline: 120 Variability: Moderate 6-25 bpm Accelerations: 15x15 Decelerations: None NST Results: Reactive Note NST Note Note: Returning in two days for NST and US. Induction of labor scheduled for the evening of 01/29 NST Reviewed and Verified by: Adrienne Govea
[2020-01-24 10:13] VITALS: BP 127/75; PULSE 74; TEMP 36.9
== END 2020-01-24 10:04 ==
LOC: BCD 07:41 → OBS 09:08
PROVIDERS: PCP Nurse Practitioner Family; Visit Provider Advanced Practice Midwife
DX: O09.523 Supervision of elderly multigravida, third trimester (principal); Z3A.38 38 weeks gestation of pregnancy
CPT/HCPCS: 59025

== ENCOUNTER 2020-01-26 01:37 | Outpatient (CLI) | payer MEDICAID, SELFPAY ==
--- NOTE | 2020-01-26 08:45 | DI.US_ITS ---
EXAM: US OB JOANIE WEIGHT CLINICAL HISTORY: AMA @ 38 wks,[id number]. TECHNIQUE: Transabdominal obstetrical ultrasound performed. COMPARISON: US [facility] OB ULTRASOUND from 05/10/2013 FINDINGS: Transabdominal obstetrical ultrasound performed. FINDINGS: Number of fetuses: One. position: Cephalic. Placental location: Anterior. No evidence of previa. BIOMETRIC DATA: EFW: 3445 grms 64% Composite Age: 38 weeks 2 days EDC: 02/07/2020 Heart Rate: 149BPM Amniotic fluid index: 9.4 cm. Visually, amniotic fluid appears at the lower limits of normal. IMPRESSION: 1. Single live intrauterine gestation as above. 2. Estimated weight is 3445gms. 3. Amniotic fluid index is 9.4 cm. Visually, within the lower limits of normal. DATA REPOSITORY:
== END 2020-01-26 01:57 ==
PROVIDERS: PCP Nurse Practitioner Family; Visit Provider Advanced Practice Midwife
DX: Z34.92 Encounter for supervision of normal pregnancy, unspecified, second trimester (principal); Z3A.38 38 weeks gestation of pregnancy
CPT/HCPCS: 76816

== ENCOUNTER 2020-01-26 07:43 | Outpatient (CLI) | payer MEDICAID, SELFPAY ==
[2020-01-26 11:51] VITALS: BP 115/73; PULSE 100; TEMP 37
[2020-01-26 11:53] VITALS: BP 115/73; PULSE 100
--- NOTE | 2020-01-26 13:31 | W.OBNST ---
Date of service: 01/26/20 Time of Service: 13:32 NST Evaluation Reason for NST Reasons for Nonstress Test: ADVANCED MATERNAL AGE Gestational Age Gestational Age in Weeks and Days: 38 Weeks and 2Days Test and Monitor Explained Test/Monitor Explained: Test Explained, Monitor Explained and Patient Verbalized Understanding Vital Signs Blood Pressure: 115/73 Pulse: 100 Temperature: 98.6 F Urine Results Urine Protein: Negative Urine Ketones: Negative Urine Glucose: Negative Urine Blood: Negative NST Information Date on Monitor: 01/26/20 Time on Monitor: 11:50 Date off Monitor: 01/26/20 Time off Monitor: 12:47 Total Time on Monitor: 57 NST Interventions: PO Hydration Contraction Frequency: none NST Evaluation Patient States Movement: Present Variability: Moderate 6-25 bpm Accelerations: 15x15 Decelerations: None NST Results: Reactive Note NST Note Note: NST for advanced maternal age. Deyaniravidhya has US today. Induction planned for 01/30/20 NST Reviewed and Verified by: Adrienne Govea
[2020-01-26 13:34] VITALS: BP 115/73; PULSE 100; TEMP 37
== END 2020-01-26 12:45 | disposition home or self-care (01) ==
LOC: BCD 07:45 → OBS 10:45
PROVIDERS: PCP Nurse Practitioner Family; Visit Provider Advanced Practice Midwife
DX: O09.523 Supervision of elderly multigravida, third trimester (principal); Z3A.38 38 weeks gestation of pregnancy
CPT/HCPCS: 59025

== ENCOUNTER 2020-02-02 16:50 | Inpatient (IN) | payer MEDICAID, SELFPAY ==
[2020-02-02 18:55] VITALS: BP 139/87; PULSE 93; RESP 16; TEMP 36.7; O2SAT 99
[2020-02-02 19:13] VITALS: BP 120/78; PULSE 92
[2020-02-02 19:13] LABS: HCT 36.3 % (36.0-46.0); HGB 12.1 g/dL (11.2-15.7); MCH 30.6 pg (27.0-33.0); MCHC 33.3 % (32.0-36.0); MCV 91.9 fL (80-95); MPV 9.9 fL (8.0-11.0); Platelet Count 295 10^3/uL (130-400); RBC 3.95 10^6/uL (3.93-5.22); RDW 12.2 % (11.7-14.6)
[2020-02-02] MEDS: miSOPROStol 25 MCG TAB PO (20:00)
--- NOTE | 2020-02-02 21:07 | W.PM.OBHPL1 ---
Date of service: 02/02/20 Time of Service: 21:08 Assessment and Plan Assessment and plan (1) Encounter for induction of labor: Status: Acute Assessment and plan: Admit to Center. misoprostol per protocol for cervical ripening. Comfort measures. Covid- 19 test. Anticipate . OB-HPI Labor/Delivery History of Present Illness Reason for Visit: ADVANCED MATERNAL AGE Chief Complaint: Scheduled Induction of Labor Indication for Induction: Other (advanced maternal age). SINTIA Calculator Estimated Delivery Date Method Current WG Current Estimate 02/07/20 Ultrasound #1 39w 2d Other Estimates 01/31/20 LMP (Certain) 40w 2d History of Present Expected Delivery Route/Plan - CNM FOB/boyfriend - Rocky ( his first child) BG GBS Negative Per [facility]FM: NST's from 37 wks, JOANIE at 38 wks, IOL @ 39 wks for AMA over 40 IOL booked for 01/29 @ 1830 cervical ripening Interested in using the tub Specific Issues/Plan 1. AMA, accepts [facility] level 2 sono w/MFM consult @ 18 wks (ordered) 1a. Level 2 sono @ [facility] is nml 1b. [facility] MFM advises bi-weekly NST's from 37 wks, JOANIE check 38-39 wks, and delivery 39-40 wks 2. Plan to draw Frostproof after 10 wks EGA, desires single marker AFP, consent form signed, PA req sent 2a. Frostproof result low prob x3 female (pt aware) 3. Known CF carrier screen negative 4. History of LEEP procedure. Last PAP ASCUS, neg HPV 2017, hx LEEP 2014, PAP to be done at 11 wk visit 5. Advised to start low dose ASA @ 12 wks d/t AMA and hx HTN when on OC's 6. ADHD, stopped Aderall when knew of - sees [facility] [employer] and green promotions specialist 7. THC+ al - 07/27 weaning off. Quit. 7a. pos marijuana screen 36 weeks , POSC____ 8. Former tobacco user - Stopped with . 9. Hypertension diagnosed prior to - every two week visits recommended to monitor her B.P. 10. Yeast on pap - discussed w/pt, Rx Terazol 7 cream 11. Desires TL at 6-8 wks , will have 30 wk appt with for consent process; done 11/30/19 [facility] Medical History (Updated 02/02/20 @ 21:12 by Adrienne Govea CNM) ADHD Chlamydia trachomatis infection remote past Rx'd condyloma vulva remote past History of spontaneous most recent 06/30/14. IUP with Paragard IUD in place. No D&C required. Paragard discontinued.. Surgical History (Updated 07/28/19 @ 15:59 by Adrienne Govea CNM) History of loop electrical excision procedure (LEEP) Family History Other Colon cancer Diabetes Hyperlipidemia Social History (Updated 01/27/18 @ 19:33 by Dhara Tamayo MD) Smoking/Tobacco Use Status: Current-Occasional Tobacco Type: cigarettes Smoking risk assessment performed?: Yes Alcohol Intake: former Drug use: Occasionally Substance use type: marijuana Household members: significant other and children Number of Children: 2 current occupation: [employer] Do you feel safe at home: Yes Do you feel safe in your relationship?: Yes Female Reproductive History Menstrual control method: none History History 6 Para 2 Hx # Term Pregnancies 2 Multiple births 0 Hx # Pregnancies 0 Ectopic pregnancies 0 AB induced 0 Hx Number of Living Children 2 AB spontaneous 3 Past Pregnancies Del. Date GA/Weeks # Outcome Route Wgt Sex Labor Lgth Anesthesia Location Prov Complic 10/22/08 40 No Successful vaginal 6 lb 8 oz Female 24 hrs Anea 12/03/13 40 No Successful vaginal 7 lb 8 oz Male 24 hrs Temp CNM - [facility] Delivery Date: 10/22/08 not a good experience, had a health support specialist, was leaking fluid before went into labor, needed miso & Pitocin I don't dilate. Very long second stage. Unmedicated , no stitches. Clarissa Subramanian Delivery Date: 12/03/13 [facility], had the same health support specialist as before, needed miso & Pit again, unmedicated, 2nd stage was long, no stitches. Clarissa Wilder Meds Home Medications and Allergies Home Medications Medication Instructions Recorded Confirmed Type vitamin no.115-iron 29 1 tab PO DAILY #90 tab 03/30/20 10/28/20 Rx mg-folic acid 1 mg chewable tablet aspirin 81 mg tablet,delayed 81 mg PO DAILY #60 tab 06/30/19 01/12/20 Rx release docusate sodium 100 mg capsule 100 mg PO DAILY #60 cap 06/30/19 01/12/20 Rx Allergies Allergy/AdvReac Type Severity Reaction Status Date / Time No Known Drug Allergies Allergy Unverified 01/12/20 10:04 Exam Physical Exam Vital signs: Temp Pulse Resp BP Pulse Ox 98.1 F 92 H 16 120/78 99 02/02/20 18:55 02/02/20 19:13 02/02/20 18:55 02/02/20 19:13 02/02/20 18:55 Vital Signs Reviewed: Yes Constitutional Constitutional: no acute distress Detailed Labor and Delivery Exam Dilation: 1 Effacement (%): 30 station: -2 Cervix position: posterior Consistency: medium Knox Score: Cervical Points Exam 0 1 2 3 Dilation Closed 1-2cm 3-4 cm 5-6cm Effacement 0-30% 40-50% 60-70% 80% Consistency Firm Medium Soft Station -3 -2 -1,0 +1,+2 Position Posterior Mid Anterior Amniotic Membrane Status: Intact Fetus A Heart Rate Baseline: 130 Monitor Accelerations: 15 X 15 Monitor Decelerations: None Variability: Moderate (6-25 BPM) Presentation: Cephalic Categories: Category I Est. Weight: 7 Respiratory Exam Respiratory Exam: Normal Cardiovascular Exam Cardiovascular Exam: Normal Abdominal Exam Abdominal Exam: Normal Exam Exam: Normal Extremities Exam Extremities Exam: Normal Back/Spine/Pelvis Exam Back Exam: Normal Pelvis Adequate: Yes Psychiatric Exam Psychiatric Exam: Normal Results Results Group Beta Strep: Negative Blood Type: O+ Rubella Status: Immune Varicella Immunity: Immune Risk Assessment Risk for Shoulder Dystocia Historical/Initial OB: NEGATIVE FOR: Pelvic Abnormality, Pre- BMI>30, Previous Shoulder Dystocia or Previous Macrosomia Increased Risk?: No Delivery Plan @ 36wks: spont labor, , proven to 7'8 Risk for Pre-Eclampsia Daily Dose ASA Indicated: No Date Initiated/Initials: advised to begin ASA @ 12 wks jk Yes, if one or more: POSTIVE FOR: Chronic HTN; NEGATIVE FOR: Hx Pre-E/Gest HTN, Multiple Gestation, Pre-gestational DM, Renal Disease, Systemic Lupus or APA Syndrome Yes, if 2 or more: POSITIVE FOR: Age>= 35 yrs; NEGATIVE FOR: Nulliparity, >10yr btwn pregnancies, BMI>30, ethinicty, Mother/Sister w/ Pre-E or Previous IUGR Risk for Post- Hemorrhage Initial: NEGATIVE FOR: Multiple Gestation, Previous PPH, Known Clotting Deficiency, Grand Multiparity or Anticoagulation At Risk?: No Risks Reviewed Risks Reviewed Upon Admission: Yes
[2020-02-02 22:03] VITALS: BP 126/79; PULSE 76; RESP 16
[2020-02-03] VITALS (11 sets, daily range): BP systolic 114–140; BP diastolic 63–86; PULSE 71–104; RESP 16–20; TEMP 36.4–36.7; O2SAT 97–99
[2020-02-03] MEDS: miSOPROStol 25 MCG TAB PO ×3 (00:17→11:33)
[2020-02-03] MEDS: Zolpidem 5 MG TAB 10 MG PO (00:17)
--- NOTE | 2020-02-03 10:30 | NUR.NOTE ---
Pt up to shower. No needs at this time Nursing Note:
--- NOTE | 2020-02-03 11:18 | PGE_ITS ---
Date of service: 02/03/20 Time of Service: 11:18 Informed Consent Informed Consent: Induction of Labor Pelvic Exam Dilation: 2 Effacement (%): 70 station: -2 Cervix Position: posterior Consistency: soft Vaginal Exam Presentation: Cephalic Pooling: Negative Contractions Monitor Mode: Palpation Contraction Frequency(min): Q 4-5 Contraction Duration(sec): mild Intensity: Mild Fetus A Monitor: External (US) Heart Rate Baseline: 130 Presentation: Cephalic Variability: Moderate (6-25 BPM) Categories: Category I FHR Rhythm: Regular Accelerations: 15 X 15 Decelerations: Variable Recurrence: Intermittent Amniotic Membrane Status: Intact Assessment and Plan Assessment and plan (1) Encounter for induction of labor: Status: Acute Assessment and plan: I discussed with Farhad the option of going home and returning or proceeding with cervical ripening. She strongly wishes to continue. Will administer 4th dose of misoprostol when staffing apllow. Farhad said she would like to have an epidural for pain relief and will start I.V. for that. Anticpate . Objective Temp Pulse Resp BP Pulse Ox 97.5 F L 84 16 139/79 97 02/03/20 10:46 02/03/20 10:46 02/03/20 10:46 02/03/20 10:46 02/03/20 10:46 Laboratory Results WBC 10.50 10^3/uL (4.4-10.8) 02/02/20 19:05 RBC 3.95 10^6/uL (3.93-5.22) 02/02/20 19:05 Hgb 12.1 g/dL (11.2-15.7) 02/02/20 19:05 Hct 36.3 % (36.0-46.0) 02/02/20 19:05 MCV 91.9 fL (80-95) 02/02/20 19:05 MCH 30.6 pg (27.0-33.0) 02/02/20 19:05 MCHC 33.3 % (32.0-36.0) 02/02/20 19:05 RDW 12.2 % (11.7-14.6) 02/02/20 19:05 Plt Count 295 10^3/uL (130-400) 02/02/20 19:05 MPV 9.9 fL (8.0-11.0) 02/02/20 19:05 Patient ABO/Rh O Positive 02/02/20: Antibody Screen Negative 02/02/20: Vital Signs Reviewed: Yes Subjective Patient Reports: No new Complaints Interval history since last seen: Contractions are mild and not painful every 4- 5 minutes. She slept x 4 hours with ambien PO. Due to staffing concerns, the 0800 dose of misoprostol was held. Results Hemoglobin/Hematocrit: Hgb 12.1 g/dL (11.2-15.7) 02/02/20: Hct 36.3 % (36.0-46.0) 02/02/20:
--- NOTE | 2020-02-03 11:18 | NUR.NOTE ---
Nursing Note: IV started in Left Arm. 18 g flushes well
[2020-02-03 16:16] LABS: COVID-19 RT-PCR UVMMC Result Negative (Negative)
--- NOTE | 2020-02-03 17:55 | W.OBDELIVERY ---
Date of service: 02/03/20 Time of Service: 17:55 OB Labor/ Delivery Information Baby A Delivery Delivery Method: Spontaneaous Presentation: Cephalic Cephalic Position: Vertex Vertex Position: Left Occipital Posterior Cord Description-Baby A: 3 Vessels Amniotic Fluid: Meconium (light) Estimated Blood Loss: 300 Delivery Outcome: Liveborn Providers Nurse Police Communications Operator: Adrienne Govea Brake Specialist: Lynda Newton Architect: Slava Morgan Nurse: Taylor Sánchez Nurse: Tony Cifuentes Labor/Delivery Information Number of Babies in Womb: 1 Steroids Given: None Reason Steroids Not Administered: N/A Group Beta Strep: Negative Antibiotics Administered: No Rubella Status: Immune Blood Type: O+ Varicella Immunity: Immune Medication in Delivery: intrathecal Maternal Complications: None Stages of Labor Onset of Labor Date: 02/03/20 Onset of Labor Time: 15:00 Complete Dilatation Date: 02/03/20 Complete Dilatation Time: 16:25 Labor - Stage 1 Duration: 0 minutes ROM Baby A: 02/03/20 ROM Baby A: 15:10 Infant Delivery Date-Baby A: 02/03/20 Delivery Time-Baby A: 17:15 Labor Stage 2 Duration: 50 minutes Placenta Delivery Date-Baby A: 02/03/20 Placenta Delivery Time-Baby A: 17:22 Labor-Stage 3 Duration: 7 minutes Total Length of Labor-Baby A: 2 hours and 15 minutes Placenta Status: Delivered Baby A Infant Gender: Female Gestational Status: Term (39-41.6 wks) Gestational Age in Weeks/Days: 39 Weeks and 3 Days Score-1 Minute Interval(Baby A) Heart Rate-1 minute: 100 BPM or Greater Respiratory Effort- 1 minute: Spontaneous/Strong Cry Muscle Tone-1 minute: Active Movement Reflex Response-1 minute: Prompt Response Color-1 minute: Pallor or Cyanosis Total Score-1 minute: 8 Score-5 Minute Interval(Baby A) Heart Rate- 5 minute: 100 BPM or Greater Respiratory Effort-5 minute: Spontaneous/Strong Cry Muscle Tone-5 minute: Active Movement Reflex Response-5 minute: Prompt Response Color-5 minute: Bluish Hands or Feet Total Score- 5 minute: 9 Note: FHTs 120 during first stage of labor. FHTs 120 in second stage with variable decellerations associated with contractions down to 100 BPM with rapid return to baseline. Moved to hands and knees position and progressed to full dilation and began pushing. Spontaneous delivery of female delivered in direct OA position. Baby was placed on mother's abdomen and dried and stimulated. Spontaneous cry. Cord was clamped and cut by Farhad . The placenta delivered spontaneously and appears to by intact with a three vessel cord. Pitocin 30 units IV was administered after delivery of the placenta. The perineum was inspected and there was a small vaginal laceration that was bleeding and reapproximated with one suture . The baby did breastfeed. After delivery, Mother and baby and father of the baby were stable and bonding well in the delivery room. Interventions Repair of Laceration Type: Other (small vaginal tear which was bleeding. Repaired with one figure of 8 suture) , Laceration Extension: N/A . Sponge Count Correct: No Sponges Placed in Vagina , Sharp Count Correct: Yes .
[2020-02-03] MEDS: Ondansetron 4 MG/2 ML VIAL 8 MG IVP (19:20)
--- NOTE | 2020-02-03 23:37 | NUR.NOTE ---
Nursing Note:Pt reports another episode of vomiting but does not wish to take anymore medication for it at this time. Is going to try to sleep.
[2020-02-04 02:30] VITALS: BP 123/74; PULSE 55; RESP 18; TEMP 36.7; O2SAT 95
[2020-02-04 07:17] LABS: HCT 35.5 % (36.0-46.0); HGB 11.9 g/dL (11.2-15.7); MCH 31.3 pg (27.0-33.0); MCHC 33.5 % (32.0-36.0); MCV 93.4 fL (80-95); Platelet Count 280 10^3/uL (130-400); RDW 12.3 % (11.7-14.6); RDW-SD 42.2 fL; WBC 13.45 10^3/uL (4.4-10.8)
[2020-02-04 08:30] VITALS: BP 125/73; PULSE 60; RESP 100; TEMP 36.7
--- NOTE | 2020-02-04 15:15 | W.PM.OBPNV1 ---
Date of service: 02/04/20 Time of Service: 15:15 Assessment and Plan Assessment and plan (1) Routine follow-up: Status: Acute Assessment and plan: A: PPD#1, nml recovery, vomiting and generalized itching following intrathecal anesthesia, now resolving P: feeling well, satisfied with experience, eating well this afternoon concerned about inadequate milk production as she has had supply issues in the past LC consult today, supplement baby as needed Plans for BTL at 6 wks Will discharge tomorrow morning Subjective Subjective Interval history: Generalized itching since delivery, had vomiting immediately which has stopped. Patient comments: Pain well controlled, Tolerating diet and Flatus present Patient's Mood: happy baby status: Doing well, Supplemental feeding going well, Rooming in and Strong Bonding Observed feeding status: Breast and formula feeding Exam Physical Exam Vital signs: Temp Pulse Resp BP Pulse Ox 98.1 F 60 100 H 125/73 95 02/04/20 08:30 02/04/20 08:30 02/04/20 08:30 02/04/20 08:30 02/04/20 02:30 Vital Signs Reviewed: Yes Constitutional Constitutional: no acute distress and average body habitus HEENT Exam HEENT Exam: Normal Neck Exam Neck Exam: Normal Breast Exam Bilateral: Breast Exam: Normal and Soft Nipple Exam: Normal Respiratory Exam Respiratory Exam: Normal Cardiovascular Exam Cardiovascular Exam: Normal Abdominal Exam Abdomen: Other (soft and nontender) Fundal Exam Fundus: Below Umbilicus and Firm Exam Perineum: Intact Extremities Exam Extremity Exam: Normal Back/Spine/Pelvis Exam Back Exam: Normal Skin Exam Skin Exam: Normal Neurological Exam Neurological Exam: Normal Psychiatric Exam Psychiatric Exam: Normal Results Hemoglobin/Hematocrit: Hgb 11.9 g/dL (11.2-15.7) 02/04/20 07:00 Hct 35.5 % (36.0-46.0) L 02/04/20 07:00 Abnormal Lab Findings: Abnormal Labs 02/04/20 07:00 WBC 13.45 H RBC 3.80 L Hct 35.5 L
[2020-02-04 16:00] VITALS: BP 121/76; PULSE 77; RESP 18; TEMP 36.7; O2SAT 97
[2020-02-04 23:07] VITALS: BP 125/70; PULSE 83; RESP 16; TEMP 37; O2SAT 97
[2020-02-05 08:32] VITALS: BP 146/80; PULSE 69; RESP 20; TEMP 36.8; O2SAT 98
[2020-02-05] MEDS: Acetaminophen 325 MG TAB 650 MG PO (10:01)
--- NOTE | 2020-02-05 10:32 | W.PM.OBPNV1 ---
Date of service: 02/05/20 Time of Service: 10:33 Assessment and Plan Assessment and plan (1) Routine follow-up: Status: Acute Assessment and plan: A: PPD#2, nml recovery, P: feeling well, itching gone Baby latching better Plans for BTL at 6 wks Will discharge today Subjective Subjective Patient comments: No complaints, Tolerating diet and Flatus present Patient's Mood: tired, happy baby status: Doing well, Nursing well, Supplemental feeding going well, Rooming in and Strong Bonding Observed [place] feeding status: Breast and formula feeding Exam Physical Exam Vital signs: Temp Pulse Resp BP Pulse Ox 98.2 F 69 20 146/80 H 98 02/05/20 08:32 02/05/20 08:32 02/05/20 08:32 02/05/20 08:32 02/05/20 08:32 Constitutional Constitutional: no acute distress and average body habitus HEENT Exam HEENT Exam: Normal Neck Exam Neck Exam: Normal Breast Exam Bilateral: Breast Exam: Normal and Soft Respiratory Exam Respiratory Exam: Normal Cardiovascular Exam Cardiovascular Exam: Normal Abdominal Exam Abdomen: Other (soft and nontender) Fundal Exam Fundus: Below Umbilicus and Firm Exam Perineum: Intact Extremities Exam Extremity Exam: Normal Back/Spine/Pelvis Exam Back Exam: Normal Skin Exam Skin Exam: Normal Neurological Exam Neurological Exam: Normal Psychiatric Exam Psychiatric Exam: Normal
--- NOTE | 2020-02-05 10:35 | DSE_ITS ---
Date of service: 02/05/20 Time of Service: 10:35 DS: Diagnosis Discharge Diagnosis (1) Routine follow-up: Status: Acute Discharge Plan Disposition Patient Disposition: HOME Condition: Good Discharge Details Reason For Visit: ADVANCED MATERNAL AGE Admit Date/Time: 02/02/20 16:50 Admit Provider: Adrienne Govea Attending Provider: Adrienne Govea Primary Care Provider: Mendoza Newton Hospital Course Hospital Course: Induced for AMA, accomplished, nml course, discharge on PPD#2 Home Meds and New Rx's Prescriptions: No Action 19 29 mg iron- 1 mg tablet,chewable 1 tab PO DAILY Qty: 90 RF: 3 docusate sodium [Colace] 100 mg capsule 100 mg PO DAILY Qty: 60 RF: 2 Discharge Instructions Additional Instructions: Your 2 week appointment may be either in person or by telehealth, depending on your preference. Please also keep your 6 week appointment at which time arrangements will be made for your tubal surgery. Stand Alone Forms: BC Instructions, NB Instructions, BC Post Vaginal Deliver Activity:: Activity as Tolerated Equipment/Supplies:: No Equipment Needed Diet:: Normal Diet Discharge Orders Discharge Orders: Discharge Order (Routine); Ordered 02/05/20 Ordered By: Clarissa Zhang OB:DS Summary Summary Vaginal Delivery Method: Spontaneaous Laceration Description: Other Laceration Extension: N/A Contraception Discussed Contraception Discussed: Yes Contraceptive Plan: Tubal Ligation, Gender-Baby A: Female weight: 7 lb 0.524 oz Status at Discharge Functional status at discharge: independent ambulation Overall status at discharge: patient is progressing back to baseline Mental Status: mental status grossly normal Speech and Movement: speech and movement normal and speech clear Mood: congruent mood Affect: normal affect Exam Physical Exam Vital signs: Temp Pulse Resp BP Pulse Ox 98.2 F 69 20 146/80 H 98 02/05/20 08:32 02/05/20 08:32 02/05/20 08:32 02/05/20 08:32 02/05/20 08:32 Constitutional Constitutional: no acute distress and average body habitus HEENT Exam HEENT Exam: Normal Neck Exam Neck Exam: Normal Breast Exam Bilateral: Breast Exam: Normal and Soft Respiratory Exam Respiratory Exam: Normal Cardiovascular Exam Cardiovascular Exam: Normal Abdominal Exam Abdomen: Other (soft and nontender) Fundal Exam Fundus: Below Umbilicus and Firm Exam Perineum: Intact Extremities Exam Extremity Exam: Normal Back/Spine/Pelvis Exam Back Exam: Normal Skin Exam Skin Exam: Normal Neurological Exam Neurological Exam: Normal Psychiatric Exam Psychiatric Exam: Normal [facility] Medical History (Updated 02/04/20 @ 15:17 by Clarissa Zhang) 28 weeks gestation of 38 weeks gestation of ADHD Advanced maternal age during in third trimester Cervical dysplasia, moderate (04/11/14) KENNY II 2014 Chlamydia trachomatis infection remote past Rx'd condyloma vulva remote past Elevated blood pressure reading History of spontaneous most recent 06/30/14. IUP with Paragard IUD in place. No D&C required. Para philomena discontinued.. Positive test Surgical History (Updated 07/28/19 @ 15:59 by Adrienne Govea CNM) History of loop electrical excision procedure (LEEP) Family History Other Colon cancer Diabetes Hyperlipidemia Social History (Updated 01/27/18 @ 19:33 by Dhara Tamayo MD) Smoking/Tobacco Use Status: Current-Occasional Tobacco Type: cigarettes Smoking risk assessment performed?: Yes Alcohol Intake: former Drug use: Occasionally Substance use type: marijuana Household members: significant other and children Number of Children: 2 current occupation: [employer] Do you feel safe at home: Yes Do you feel safe in your relationship?: Yes Female Reproductive History Menstrual control method: none History History 6 Para 2 Hx # Term Pregnancies 2 Multiple births 0 Hx # Pregnancies 0 Ectopic pregnancies 0 AB induced 0 Hx Number of Living Children 2 AB spontaneous 3 Past Pregnancies Del. Date GA/Weeks # Outcome Route Wgt Sex Labor Lgth Anesthes ia Loc ation Prov Complic 10/22/08 40 No Successful vaginal 6 lb 8 oz Female 24 hrs Anea 12/03/13 40 No Successful vaginal 7 lb 8 oz Male 24 hrs Temp [place] - [place] Delivery Date: 10/22/08 not a good experience, had a needle loom setter, was leaking fluid before went into labor, needed miso & Pitocin I don't dilate. Very long second stage. Unmedicated , no stitches. Clarissa Subramanian Delivery Date: 12/03/13 SROM, had the same needle loom setter as before, needed miso & Pit again, unmedicated, 2nd stage was long, no stitches. Clarissa Wilder DS: Data Vitals/I&O Vitals and I&O: Vital Signs Temperature 98.2 F 02/05/20 08:32 Pulse 69 02/05/20 08:32 Pulse Rhythm Regular 02/05/20 10:15 Respiratory Rate 02/05/20 08:32 Blood Pressure 146/80 H 02/05/20 08:32 Blood Pressure Mean 102 02/05/20 08:32 Pulse Oximetry 98 02/05/20 08:32 Oxygen Delivery Method Room Air 02/03/20 15:44 Oxygen Flow Rate 0 02/03/20 15:44 Pain Level 2 02/05/20 10:01 Comment 02/03/20 17:55 Intake & Output 02/04/20 02/04/20 02/05/20 11:59 23:59 11:59 Other: Urine Color Yellow Yellow Yellow
== END 2020-02-05 12:45 | disposition home or self-care (01) | DRG 806 ==
PROVIDERS: Admitting Provider Advanced Practice Midwife; PCP Nurse Practitioner Family; Visit Provider Advanced Practice Midwife
DX: O77.0 Labor and delivery complicated by meconium in amniotic fluid (principal); O99.324 Drug use complicating childbirth; Z37.0 Single live birth; O71.4 Obstetric high vaginal laceration alone; O76 Abnormality in fetal heart rate and rhythm complicating labor and delivery; Z3A.39 39 weeks gestation of pregnancy; O09.523 Supervision of elderly multigravida, third trimester; Z79.82 Long term (current) use of aspirin; F12.10 Cannabis abuse, uncomplicated; Z87.891 Personal history of nicotine dependence; Z67.40 Type O blood, Rh positive
CPT/HCPCS: 36415; 85027; 86850; 86900; 86901; U0003; J2405; J3490

== ENCOUNTER 2020-08-03 11:12 | Outpatient (REF) | payer MEDICAID, SELFPAY ==
[2020-08-08 12:37] LABS: Amphetamine 159 ng/mL (Cutoff: 25); Amphetamines Interpretation Positive.; MDA (Ecstasy Metabolite) Negative ng/mL (Cutoff: 25); MDMA (Ecstasy) Negative ng/mL (Cutoff: 25); Methamphetamine Negative ng/mL (Cutoff: 25); Phentermine Negative ng/mL (Cutoff: 25); Pseudoephedrine/Ephedrine Negative ng/mL (Cutoff: 25)
== END 2020-08-03 11:13 | disposition home or self-care (01) ==
LOC: NCHCN 11:12
PROVIDERS: PCP Nurse Practitioner Family; Visit Provider Nurse Practitioner Family
DX: Z51.81 Encounter for therapeutic drug level monitoring (principal); R82.5 Elevated urine levels of drugs, medicaments and biological substances
CPT/HCPCS: 80324

== ENCOUNTER 2021-03-15 17:12 | Outpatient (REF) | payer MEDICAID, SELFPAY ==
[2021-03-16 16:55] LABS: COVID-19 RT-PCR UVMMC Result Negative (Negative)
== END 2021-03-15 17:13 | disposition home or self-care (01) ==
LOC: LBN 17:12
PROVIDERS: PCP Nurse Practitioner Family; Visit Provider Physician Assistant Medical
DX: Z20.822 Contact with and (suspected) exposure to COVID-19 (principal); J34.89 Other specified disorders of nose and nasal sinuses
CPT/HCPCS: U0003

== ENCOUNTER 2021-03-19 09:41 | Outpatient (CLI) | payer MEDICAID, SELFPAY ==
--- NOTE | 2021-03-19 | DI.RAD_ITS ---
Exam(s) XR CHEST 2V PA LATERAL EXAM: XR CHEST 2V PA LATERAL CLINICAL HISTORY: COUGH, R05.8 TECHNIQUE: 2D digital imaging was performed. COMPARISON: No exams were available for comparison FINDINGS: MEDIASTINUM: Normal. HEART: Normal. PULMONARY VASCULATURE: Normal. LUNGS: Patchy infiltrate lingula. Remainder of the lungs are clear. PLEURAL SPACE: No pleural effusion or pneumothorax. BONE:Unremarkable for age. IMPRESSION: Lingular infiltrate. DATA REPOSITORY: RADIATION DOSE DELIVERED:
== END 2021-03-19 10:01 ==
PROVIDERS: PCP Nurse Practitioner Family; Visit Provider Physician Assistant
DX: R05.8 Other specified cough (principal); R91.8 Other nonspecific abnormal finding of lung field
CPT/HCPCS: 71046

== ENCOUNTER 2021-09-18 10:35 | Emergency (ER) | payer MEDICAID, SELFPAY ==
[2021-09-18] VITALS (34 sets, daily range): BP systolic 151–157; BP diastolic 89–102; PULSE 89–93; RESP 18; TEMP 36.6; O2SAT 99–100
--- NOTE | 2021-09-18 11:15 | DI.US_ITS ---
Exam(s) US OB 1ST TRIMESTER EXAM: US OB 1ST TRIMESTER CLINICAL HISTORY: , vag bleed, abd pain, assess viability. TECHNIQUE: First trimester obstetrical ultrasound was performed. COMPARISON: US US OB JOANIE WEIGHT from 01/26/2020 FINDINGS: There is in nongravid anteverted uterus measuring 12 cm length 5 cm AP by 6 cm wide. There are no ut erine fibroids. No fluid in the endometrial canal. No evidence of intrauterine gestational sac. Ho wever, the endometrium appears thickened and heterogeneous Right ovary appears unremarkable, measuring 2 x 2 x 1.5 cm. Left ovary measures 4.2 x 4.3 x 2.7 cm. There are 2 follicular cysts in the left ovary. The larger measures 2.7 x 1.7 x 2.2 cm. The smaller cyst measures 1.9 x 1.5 x 1.6 cm. There are no extra ovari an adnexal masses and no free fluid the in the cul-de-sac. IMPRESSION:: 1. Thickened heterogeneous endometrial lining. No obvious intrauterine gestational sac. 2. Two simple follicular cysts noted in the left ovary, with measurements as above. Right ovary appe ars unremarkable. 3. No free fluid. Correlation with appropriate blood work recommended. DATA REPOSITORY:
--- NOTE | 2021-09-18 11:16 | ED.GENADUL_ITS ---
Discharge Plan Disposition Patient Disposition: HOME Condition: Improving Discharge Details Clinical Impression: Miscarriage Primary Care Provider: [facility] ED Provider: Karen Gama Home Meds and New Rx's Prescriptions: Continued dextroamphetamine-amphetamine 30 mg tablet 1 tab PO DAILY Label Comments: TAKE ONE TABLET BY MOUTH EVERY MORNING dextroamphetamine-amphetamine 20 mg tablet 1 tab PO DAILY Label Comments: TAKE ONE TABLET BY MOUTH IN THE AFTERNOON Rx Instructions: takes in afternoons Discharge Instructions Instructions: Miscarriage (ED) Additional Instructions: Your lab work and imaging today revealed that you likely had a recent miscarriage. The hunting guide is recommending you obtain a repeat hormone test in 1 week to confirm that this level is decreasing. Drink plenty of fluids and get plenty of rest. Alternate tylenol and motrin as needed and directed for pain. Take the tramadol that you have at home as needed and directed for pain not relieved with Tylenol and Motrin. Call [facility] tomorrow to schedule a follow-up appointment for reevaluation within the next week. Return immediately to the emergency department if you develop any worsening or new concerning symptoms such as fever, persistent vomiting, worsening pain or any other concerns Referrals: [facility] [Provider Group] Discharge Data Discharge Date/Time-TO BE ENTERED AT DEPARTURE: 09/18/21 14:21 Discharge Physician: Karen Gama Medical Decision Making 41-year-old female G n L3 at approximately 12 weeks based on LMP of 06/24/2021 presents with report of miscarriage on September 02 with 48 hours of abdominal pain and vaginal bleeding now with return of lower abdominal pain still with brown vaginal spotting this morning. test positive on arrival. Her vitals are within normal limits and she appears comfortable. Her abdomen is soft but tender in the lower quadrants. Suspect incomplete miscarriage but also considered ectopic . Will obtain screening labs, urinalysis, OB ultrasound and give IV Tylenol, IV Zofran and fluids and f/u with OB. Labs and imaging reviewed. White blood cell count 11. Normal electrolytes. Beta quant 45. Urinalysis notes 10-20 WBCs, 3-5 RBCs with few bacteria, many epithelial cells, moderate leukocyte esterase and negative nitrite. Pelvic ultrasound notes IMPRESSION::? 1. Thickened heterogeneous endometrial lining.? No obvious intrauterine gestational sac. 2. Two simple follicular cysts noted in the left ovary, with measurements as above.? Right ovary appears unremarkable. 3. No free fluid. Case discussed with OB doctor on-call Dr. Hampton --presentation likely consistent with miscarriage. No obvious retained products noted. Recommends repeat beta quant in 1 week. Results discussed with patient and she states she feels comfortable going home. Reassessment of abdomen notes mostly suprapubic tenderness that is not specifically localized to the right lower quadrant and she has no right upper quadrant tenderness. Discussed with patient that history and presentation does not appear consistent with cholecystitis or appendicitis and suspect her symptoms could be secondary to persistent pain related to recent miscarriage. Patient advised to return here immediately if she develops any worsening or new concerning symptoms for reevaluation and consideration for CT imaging at that time. Usual and customary return precautions given prior to discharge. Medical Records Medical records reviewed: Yes I reviewed the patient's medical records. Imaging Data Radiologic Study: Radiologist's impression: US OB 1ST TRIMESTER CLINICAL HISTORY: ? , vag bleed, abd pain, assess viability.? TECHNIQUE:? First trimester obstetrical ultrasound was performed. COMPARISON:? US US OB JOANIE ? WEIGHT from 01/26/2020 FINDINGS: There is in nongravid anteverted uterus measuring 12 cm length 5 cm AP by 6 cm wide.? There are no uterine fibroids.? No fluid in the endometrial canal.? No evidence of intrauterine gestational sac.? However, the endometrium appears thickened and heterogeneous Right ovary appears unremarkable, measuring 2 x 2 x 1.5 cm. Left ovary measures 4.2 x 4.3 x 2.7 cm.? There are 2 follicular cysts in the left ovary.? The larger measures 2.7 x 1.7 x 2.2 cm.? The smaller cyst measures 1.9 x 1.5 x 1.6 cm.? There are no extra ovarian adnexal masses and no free fluid the in the cul-de-sac.? IMPRESSION::? 1. Thickened heterogeneous endometrial lining.? No obvious intrauterine gestational sac. 2. Two simple follicular cysts noted in the left ovary, with measurements as above.? Right ovary appears unremarkable. 3. No free fluid. Lab Data Lab results reviewed: Yes I reviewed the patient's lab results. Labs: Laboratory Tests Range/Units 09/18/21 09/18/21 09/18/21 10:40 11:25 11:25 WBC (4.4-10.8) 10^3/uL 11.47 H RBC (3.93-5.22) 10^6/uL 3.84 L Hgb (11.2-15.7) g/dL 12.3 Hct (36.0-46.0) % 37.6 MCV (80-95) fL 98 H MCH (27.0-33.0) pg 32.0 MCHC (32.0-36.0) % 32.7 RDW (11.7-14.6) % 12.5 Plt Count (130-400) 10^3/uL 357 MPV (8.0-11.0) fL 8.5 Immature Gran % 0.4 Neutrophils % 84.2 Lymphocytes % 9.2 Monocytes % 5.2 Eosinophils % 0.6 Basophils % 0.4 Nucleated RBC % (0.0-0.3) % 0.0 Absolute Neutrophils (1.2-6.7) 10^3/uL 9.66 H Absolute Lymphocytes (1.2-3.4) 10^3/uL 1.06 L Absolute Monocytes (0.1-0.8) 10^3/uL 0.60 Absolute Eosinophils (0.0-0.7) 10^3/uL 0.07 Absolute Basophils (0.0-0.2) 10^3/uL 0.05 Sodium (136-145) mmol/L 136 Potassium (3.5-5.1) mmol/L 3.5 Chloride (98-107) mmol/L 102 Carbon Dioxide (21.0-32.0) mmol/L 26.6 Anion Gap (3-11) mmol/L 7.4 BUN (7-18) mg/dL 13 Creatinine (0.55-1.02) mg/dL 0.7 Estimated GFR/1.73 m2 (mL/min/1.73m2) >= 60.00 Glucose (74-106) mg/dL 100 Calcium (8.5-10.1) mg/dL 8.5 Total Bilirubin (0.2-1.0) mg/dL 0.7 AST (15-37) U/L 19 ALT (14-59) U/L 26 Alkaline Phosphatase (46-116) U/L 62 Total Protein (6.4-8.2) g/dL 7.0 Albumin (3.4-5.0) g/dL 3.9 Lipase (73-393) U/L Beta HCG, Quant (1-3) mIU/mL 45 H Urine Color (Yellow) Yellow Urine Clarity (Clear) Clear Urine pH (5-8) 7.5 Ur Specific [place] (1.005-1.025) 1.015 Urine Protein (Negative) mg/dL Negative Urine Ketones (Negative) mg/dL Negative Urine Blood (Negative) Large H Urine Nitrite (Negative) Negative Urine Bilirubin (Negative) Negative Urine Urobilinogen (Up TO 0.2) EU/dL 0.2 Ur Leukocyte Esterase (Negative) Moderate H Urine RBC (0-2) HPF 3-5 H Urine WBC (0-5) HPF 20-50 H Ur Epithelial Cells (Negative) HPF Many Urine Crystals (Negative) HPF Negative Urine Bacteria (Negative) HPF Few Urine Casts (Negative) LPF Negative Urine Mucus (Negative) Negative Ur Culture Indicated? No/Sq. Contamination Urine Glucose (Negative) mg/dL Negative Patient ABO/Rh Range/Units 09/18/21 09/18/21 11:25 11:25 WBC (4.4-10.8) 10^3/uL RBC (3.93-5.22) 10^6/uL Hgb (11.2-15.7) g/dL Hct (36.0-46.0) % MCV (80-95) fL MCH (27.0-33.0) pg MCHC (32.0-36.0) % RDW (11.7-14.6) % Plt Count (130-400) 10^3/uL MPV (8.0-11.0) fL Immature Gran % Neutrophils % Lymphocytes % Monocytes % Eosinophils % Basophils % Nucleated RBC % (0.0-0.3) % Absolute Neutrophils (1.2-6.7) 10^3/uL Absolute Lymphocytes (1.2-3.4) 10^3/uL Absolute Monocytes (0.1-0.8) 10^3/uL Absolute Eosinophils (0.0-0.7) 10^3/uL Absolute Basophils (0.0-0.2) 10^3/uL Sodium (136-145) mmol/L Potassium (3.5-5.1) mmol/L Chloride (98-107) mmol/L Carbon Dioxide (21.0-32.0) mmol/L Anion Gap (3-11) mmol/L BUN (7-18) mg/dL Creatinine (0.55-1.02) mg/dL Estimated GFR/1.73 m2 (mL/min/1.73m2) Glucose (74-106) mg/dL Calcium (8.5-10.1) mg/dL Total Bilirubin (0.2-1.0) mg/dL AST (15-37) U/L ALT (14-59) U/L Alkaline Phosphatase (46-116) U/L Total Protein (6.4-8.2) g/dL Albumin (3.4-5.0) g/dL Lipase (73-393) U/L 244 Beta HCG, Quant (1-3) mIU/mL Urine Color (Yellow) Urine Clarity (Clear) Urine pH (5-8) Ur Specific [place] (1.005-1.025) Urine Protein (Negative) mg/dL Urine Ketones (Negative) mg/dL Urine Blood (Negative) Urine Nitrite (Negative) Urine Bilirubin (Negative) Urine Urobilinogen (Up TO 0.2) EU/dL Ur Leukocyte Esterase (Negative) Urine RBC (0-2) HPF Urine WBC (0-5) HPF Ur Epithelial Cells (Negative) HPF Urine Crystals (Negative) HPF Urine Bacteria (Negative) HPF Urine Casts (Negative) LPF Urine Mucus (Negative) Ur Culture Indicated? Urine Glucose (Negative) mg/dL Patient ABO/Rh O Positive HPI General Mode of arrival: ambulatory . Date/Time Provider Initiated Documentation: 09/18/21 10:46 . Limitations to Documentation: no limitations . Information obtained by: patient . HPI Narrative: Patient is a 41-year-old female G7, L3 at approximately 12 weeks based on LMP of 06/24/21 who presents for report of what she suspected was a miscarriage on September 02 with 48 hours of lower abdominal pain and heavy vaginal bleeding with return of lower abdominal and bilateral groin pain still with vaginal spotting today. Patient states she has had 2 previous elective abortions and 1 previous miscarriage. She states she started with lower abdominal cramping on September 02 with vaginal bleeding of approximately 1 pad every hour for 48 hours which then improved. She states she thought she was having a miscarriage at that time and states since then she had had only brown vaginal spotting. She states since this morning she developed return of lower abdominal and bilateral groin pain which is dull and aching. She states the pain is mainly worse when she is ambulating. She admits to nausea but denies any fever, vomiting, urinary symptoms or diarrhea. She states she thought she was constipated but did have a small bowel movement yesterday. She denies any rectal bleeding. She states she called [facility] today and they advised she come to the emergency department for further evaluation. Related Data Home Medications Medication Instructions Recorded Confirmed dextroamphetamine-amphetamine 20 1 tab PO DAILY 09/18/21 09/18/21 mg tablet dextroamphetamine-amphetamine 30 1 tab PO DAILY 09/18/21 09/18/21 mg tablet Allergies Allergy/AdvReac Type Severity Reaction Status Date / Time No Known Drug Allergies Allergy Unverified 09/18/21 10:44 General Stated Complaint: RE EXAMINER ERNST: 3 Review of Systems All systems reviewed & are unremarkable except as noted in HPI and below Constitutional Constitutional: Denies chills, Denies excessive sweating, Denies fatigue, Denies fever(s), Denies weakness and Denies weight loss Eyes Eyes: Reports system reviewed and no additional complaints, except as documented and Denies blurry vision ENT Ears, Nose, Mouth, and Throat: Denies vertigo, Denies dizziness, Denies otalgia, Denies nasal congestion, Denies sore throat and Denies throat swelling Cardiovascular Cardiovascular: Denies chest pain, Denies syncope, Denies rapid heart rate and Denies dyspnea Respiratory Respiratory: Denies chest congestion, Denies cough, Denies pain on inspiration and Denies dyspnea Gastrointestinal Gastrointestinal: Reports abdominal pain, Denies diarrhea, Reports nausea and Denies vomiting Genitourinary Genitourinary: Denies hematuria, Denies dysuria, Denies flank pain and Reports other (vaginal bleeding) Musculoskeletal Musculoskeletal: Denies back pain and Denies joint swelling Integumentary/Breasts Skin/Breast: Denies lesions and Denies rash Neurologic Neurologic: Denies behavioral changes, Denies confusion, Denies vertigo, Denies dizziness, Denies syncope, Denies localized weakness and Denies weakness Psychiatric Psychiatric: Denies behavioral changes, Denies confusion and Denies depression Endocrine Endocrine: Denies excessive sweating and Denies fatigue Hematologic/Lymphatic Hematologic/Lymphatic: Denies easy bruising and Denies lymphadenopathy Allergic/Immunologic Allergic/Immunologic: Denies throat swelling PFSH All Active Problems (Updated 09/18/21 @ 14:09 by Karen Gama DO) Miscarriage (Acute) Routine follow-up (Acute) Encounter for induction of labor (Acute) History of loop electrical excision procedure (LEEP) (Acute) ADHD (Acute) Tobacco dependence (Acute) Medical History (Updated 09/18/21 @ 14:09 by Karen Gama DO) 28 weeks gestation of 38 weeks gestation of Advanced maternal age during in third trimester Cervical dysplasia, moderate (04/11/14) KENNY II 2014 Chlamydia trachomatis infection remote past Rx'd condyloma vulva remote past Elevated blood pressure reading History of spontaneous most recent 06/30/14. IUP with Paragard IUD in place. No D&C required. Paragard discontinued.. Positive test Family History Other Colon cancer Diabetes Hyperlipidemia Social History (Updated 01/27/18 @ 19:33 by Dhara Tamayo MD) Smoking/Tobacco Use Status: Current-Occasional Tobacco Type: cigarettes Smoking risk assessment performed?: Yes Alcohol Intake: former Drug use: Occasionally Substance use type: marijuana Household members: significant other and children Number of Children: 2 current occupation: [employer] Do you feel safe at home: Yes Do you feel safe in your relationship?: Yes Female Reproductive History Menstrual control method: none History History 7 Para 3 Hx # Term Pregnancies 3 Multiple births 0 Hx # Pregnancies 0 Ectopic pregnancies 0 AB induced 0 Hx Number of Living Children 3 AB spontaneous 3 Past Pregnancies Del. Date GA/Weeks # Preg Succ Route Wgt Sex Labor Lgth Anesth esia Location [facility] 10/22/08 40 No vaginal 2948.35 g Female 24 hrs Ane a 12/03/13 40 No vaginal 3401.943 g Male 24 hrs Tem p CNM - [facility] 02/03/20 No vaginal Female 2 hours, 15 minutes Yoli [facility] other Delivery Date: 10/22/08 Last Updated by: Clarissa Zhang not a good experience, had a ditch cleaner, was leaking fluid before went into labor, needed miso & Pitocin I don't dilate. Very long second stage. Unmedicated , no stitches. [place] Delivery Date: 12/03/13 Last Updated by: Clarissa CHAPMAN, had the same ditch cleaner as before, needed miso & Pit again, unmedicated, 2nd stage was long, no stitches. [place] Delivery Date: 02/03/20 Last Updated by: Eva Segura RN FHTs 120s during first stage, 120s in second stage with variable decelerations with contractions, down to 100 with rapid return to baseline. Moved to hands and knees and progressed to full dilation and began pushing. Spontaneous delivery of female in the OA position. Placenta delivered spontaneously with 3 vessels. Small vaginal laceration reapproximated with one suture. Exam Const General: cooperative and no acute distress Orientation: alert, awake and oriented x3 HENMT Head: normal to inspection Ears: hearing grossly normal bilaterally, external ears normal and TM's normal bilaterally General nose exam: external nose normal Face and sinus: normal facial exam Mouth: oral mucosae normal Teeth and gingiva: dentition normal Throat: posterior oropharynx normal Eyes General: appearance normal, both eyes and all related structures Eyelids: eyelids normal Pupils: PERRL EOM: EOM intact bilaterally Neck Neck: normal visual inspection Lymphatic: no lymphadenopathy noted Chest Chest: normal inspection of the chest Resp Effort & Inspection: normal respiratory effort and able to speak in complete sentences Auscultation: clear to auscultation bilaterally Cardio Rate: regular rate Rhythm: regular rhythm GI Inspection: normal to inspection Palpation: soft, not firm, no guarding, no hepatosplenomegaly, no masses and tender suprapubicly Auscultation: normal bowel sounds Back/Spine/Pelvis Back: no CVA tenderness Skin General skin exam: no rashes or lesions noted Neuro General: patient alert and patient awake Cognition: normal cognition Speech: speech normal Gait: normal gait Motor: muscle tone normal throughout Sensory Exam: no sensory deficits noted Extrem General: normal to inspection, full ROM and capillary refill normal Psych Appearance: grossly normal Mental Status: mental status grossly normal Speech and Movement: speech and movement normal Affect: normal affect Thought Process: normal Course Vital Signs Vital signs: Vital Signs Temperature 97.9 F 09/18/21 10:39 Pulse 93 H 09/18/21 10:39 Respiratory Rate 18 09/18/21 10:39 Blood Pressure 157/102 H 09/18/21 10:39 Pulse Oximetry 100 09/18/21 10:39 Temperature 97.9 F 09/18/21 10:39 Temperature Source Skin 09/18/21 10:39 Pulse 93 H 09/18/21 10:39 Respiratory Rate 18 09/18/21 10:39 Blood Pressure 157/102 H 09/18/21 10:39 Blood Pressure Position Sitting 09/18/21 10:39 Pulse Oximetry 100 09/18/21 10:39 Oxygen Delivery Method Room Air 09/18/21 10:39 Oxygen Flow Rate 0 09/18/21 10:39 Pain Level 4 09/18/21 10:39 Lab/Test Results Lab/Test Results: POC- Test(urine) Positive
[2021-09-18 11:25] LABS: Bilirubin Negative (Negative); Blood Large (Negative); Clarity Clear (Clear); Glucose Negative (Negative); Ketones Negative (Negative); Leukocyte Esterase Moderate (Negative); Nitrite Negative (Negative); Specific Gravity 1.015 (1.005-1.025); Urobilinogen 0.2 EU/dL (Up TO 0.2); pH 7.5 (5-8)
[2021-09-18 11:33] LABS: Bacteria Few HPF (Negative); C & S Indicated? No/Sq. Contamination; Casts Negative LPF (Negative); Crystals Negative HPF (Negative); Epithelial Cells Many HPF (Negative); Mucus Negative (Negative); WBC 20-50 HPF (0-5)
[2021-09-18 11:44] LABS: Abs Immature Grans 0.05 10^3/uL (0.0-0.06); Absolute Basophil Count 0.05 10^3/uL (0.0-0.2); Absolute Eosinophil Count 0.07 10^3/uL (0.0-0.7); Absolute Lymphocyte Count 1.06 10^3/uL (1.2-3.4); Basophils % 0.4; Eosinophils % 0.6; HCT 37.6 % (36.0-46.0); HGB 12.3 g/dL (11.2-15.7); Immature Grans % 0.4; Lymphocytes % 9.2; MCHC 32.7 % (32.0-36.0); MCV 98 fL (80-95); MPV 8.5 fL (8.0-11.0); Monocytes % 5.2; Neutrophils % 84.2; Platelet Count 357 10^3/uL (130-400); RBC 3.84 10^6/uL (3.93-5.22); RDW 12.5 % (11.7-14.6); RDW-SD 44.6 fL; WBC 11.47 10^3/uL (4.4-10.8)
[2021-09-18] MEDS: ACETAMINOPHEN 1,000 MG/100 ML BTL 400 MG IVPB (11:50)
[2021-09-18 11:52] LABS: Absolute Neutrophil Count 9.66 10^3/uL (1.2-6.7)
[2021-09-18] MEDS: Normal Saline 1,000 ML 1000 ML IV (11:52)
[2021-09-18 12:07] LABS: ALT 26 U/L (14-59); AST 19 U/L (15-37); Albumin 3.9 g/dL (3.4-5.0); Alkaline Phosphatase 62 U/L (46-116); Anion Gap 7.4 mmol/L (3-11); BUN 13 mg/dL (7-18); Bilirubin, Total 0.7 mg/dL (0.2-1.0); CO2 26.6 mmol/L (21.0-32.0); CREATININE 0.7 mg/dL (0.55-1.02); Calcium 8.5 mg/dL (8.5-10.1); Chloride 102 mmol/L (98-107); Glucose 100 mg/dL (74-106); HCG Quant, Pregnancy 45 mIU/mL (1-3); Potassium 3.5 mmol/L (3.5-5.1); Sodium 136 mmol/L (136-145)
[2021-09-18 14:00] LABS: Lipase 244 U/L (73-393)
== END 2021-09-18 14:21 | disposition home or self-care (01) ==
PROVIDERS: Emergency Provider Physician Assistant; PCP Nurse Practitioner Family
DX: O03.9 Complete or unspecified spontaneous abortion without complication (principal); F17.210 Nicotine dependence, cigarettes, uncomplicated
CPT/HCPCS: 80053; 81025; 83690; 86900; 86901; 96361; 96374; 96375; 99284; 76801; 81003; 81015; 84702; 85025; J0131

== ENCOUNTER → 2021-11-30 00:44 | Outpatient (CLI) | payer MEDICAID, SELFPAY ==
--- NOTE | 2021-11-30 11:45 | DI.MAMMO_ITS ---
Exam(s) MAMMO SCREENING EXAM: MAMMO SCREENING CLINICAL HISTORY: SCREENING, Z12.39. TECHNIQUE: Bilateral full field digital CC and MLO mammographic images were obtained with 3D tomosyn thesis and utilizing computer aided detection (CAD). COMPARISON: None. This is a baseline mammogram on this 41-year-old patient. FINDINGS: There are no CAD designations. There are no spiculated masses nor malignant appearing microcalcification groups. There is no significant architectural distortion nor skin thickening-retraction. IMPRESSION: No radiographic evidence of malignancy. BI-RADS Category 1 - Negative Breast Density - Category B - Scattered areas of fibroglandular density Breast density Category C or D implies that the patient has dense breast tissue. Dense breast tissue can make it harder to find cancer on a mammogram. Dense breast tissue is also associated with an incr eased risk of breast cancer. This information about the result of the mammogram report was provided to the patient to raise their awareness. Use this report when you speak with the patient about their risks for breast cancer, which includes their family history. At that time, you may recommend additional screening tests (Ultrasoun d or MRI) as these tests may add significant information. A negative radiographic report should not delay biopsy if a dominant or clinically suspicious mass is present. Up to ten percent of cancers are not identified on mammography. A negative report may reinforce clinical impression. Adenosis and dense breasts may obscure an underlying neoplasm. False positive reports average 6 to 10%. Patient will receive a letter notifying them of these results.
--- NOTE | 2021-11-30 12:30 | DI.RAD_ITS ---
Exam(s) XR SHOULDER RT COMPLETE 2+V EXAM: XR SHOULDER RT COMPLETE 2+V CLINICAL HISTORY: RT SHOULDER JT PAIN, M25.511. TECHNIQUE: 2D digital imaging was performed. COMPARISON: No exams were available for comparison FINDINGS: Five views. No evidence of fracture or dislocation. No abnormal soft tissue calcifications. No osseous lesions. Bone density normal. No degenerative changes evident in the glenohumeral and AC joints. Subacromi al space is not diminished. Ipsilateral clavicle unremarkable. Adjacent ribs unremarkable. IMPRESSION: No significant radiograph findings in the right shoulder. DATA REPOSITORY: RADIATION DOSE DELIVERED:
== END ==
PROVIDERS: Visit Provider Physician Assistant
DX: Z12.31 Encounter for screening mammogram for malignant neoplasm of breast (principal); M25.511 Pain in right shoulder; R92.8 Other abnormal and inconclusive findings on diagnostic imaging of breast
CPT/HCPCS: 77063; 77067; 73030

== ENCOUNTER → 2023-06-16 04:09 | Outpatient (CLI) | payer MEDICAID, SELFPAY ==
--- NOTE | 2023-06-16 | DI.MAMMO_ITS ---
Exam(s) MAMMO SCREENING EXAM: MAMMO SCREENING CLINICAL HISTORY: SCREENING MAMMO FOR BREAST CANCER Z12.39 TECHNIQUE: Bilateral full field digital CC and MLO mammographic images were obtained with 3D tomosyn thesis and utilizing computer aided detection (CAD). COMPARISON: Available for comparison. FINDINGS: Masses/Architectural Distortion: None seen. Microcalcifications: No suspicious pleomorphic-type are seen. Skin Thickening/Nipple Retraction: None. IMPRESSION: 1. No significant interval change with no specific features of malignancy noted. 2. Unless there is more urgent need, screening mammography is recommended, as per [employer] [employer] guidelines. BI-RADS Category 1 - Negative Breast Density - Category B - Scattered areas of fibroglandular density Breast density category C or D implies that the patient has dense breast tissue. Dense breast tissue is very common and is not abnormal but dense breast tissue can make it harder to find cancer on a ma mmogram. Also, dense breast tissue may increase their breast cancer risk. This information about the result of the mammogram report was provided to the patient to raise their awareness. Use this report when you speak with the patient about their risks for breast cancer, which includes their family hist ory. At that time, you may recommend for more screening tests (Ultrasound or MRI) as they might be us eful based on their risk. A negative radiographic report should not delay biopsy if a dominant or clinically suspicious mass is present. Up to ten percent of cancers are not identified on mammography. A negative report may reinforce clinical impression. Adenosis and dense breasts may obscure an underlying neoplasm. False positive reports average 6 to 10%. Patient will receive a letter notifying them of these results.
== END ==
PROVIDERS: PCP Physician Assistant; Visit Provider Physician Assistant
DX: Z12.31 Encounter for screening mammogram for malignant neoplasm of breast (principal)
CPT/HCPCS: 77063; 77067